=== PATIENT | male | born 1975 | race Two or more races ===

== ENCOUNTER → 2023-07-17 12:12 | Outpatient (REF) | payer BC, SELFPAY ==
[2023-07-17 13:21] LABS: % Basophils 0.7 % (0-2); % Eosinophils 1.6 % (0-6); % Immature Granulocytes 0.3 % (0-0.5); % Lymphocytes 32.9 % (20.5-51.1); % Monocytes 8.4 % (1.7-9.3); % Neutrophils 56.1 % (42.2-75.2); Absolute Basophils 0.1 10^3/uL (0-0.2); Absolute Eosinophils 0.2 10^3/uL (0-0.7); Absolute Lymphocytes 3.2 10^3/uL (1.2-3.4); Absolute Monocytes 0.8 10^3/uL (0.1-0.6); Absolute Neutrophils 5.4 10^3/uL (1.4-6.5); Hematocrit 42.2 % (39.0-52.0); Hemoglobin 14.6 g/dL (13.0-18.0); Mean Corp Hgb Conc. 34.6 g/dL (33.0-37.0); Mean Corpuscular Hgb 29.7 pg (27.0-31.0); Mean Corpuscular Volume 85.8 fL (80.0-94.0); Mean Platelet Volume 11.5 fL (7.4-10.4); Nucleated Red Blood Cells % 0 % (-); Platelet Count 235 10^3/uL (130-400); Red Blood Cell Count 4.92 10^6/uL (4.70-6.10); Red Cell Dist. Width 13.1 % (11.5-14.5); White Blood Cell Count 9.6 10^3/uL (4.8-10.8)
[2023-07-17 14:02] LABS: ALT (SGPT) 39 U/L (0-50); AST (SGOT) 28 U/L (17-59); Albumin 4.4 g/dl (3.5-5.0); Alkaline Phosphatase 65 U/L (38-126); Blood Urea Nitrogen 15 mg/dl (9-20); Calcium 9.4 mg/dl (8.4-10.2); Carbon Dioxide 29 mmol/L (22-30); Chloride 102 mmol/L (98-107); Glucose 89 mg/dl (70-99); HDL Cholesterol 37 mg/dl; LDL Cholesterol, Calculated 79 mg/dl; Sodium 137 mmol/L (135-145); Total Bilirubin 0.6 mg/dl (0.2-1.3); Total Cholesterol 149 mg/dl (50-199); Total Protein 7.3 g/dl (6.3-8.2); Triglyceride 165 mg/dl (10-149); Very Low Density Lipoprotein 33 mg/dl (0-30); eGFR > 60.00
[2023-07-17 14:16] LABS: TSH 1.04 uIU/ml (0.47-4.68)
[2023-07-17 14:30] LABS: PSA, Total - Diagnostic 0.73 ng/ml (0.0-4.0)
[2023-07-17 14:55] LABS: Glycohemoglobin (HgbA1c) 5.9 % (4.0-5.6)
== END ==
LOC: REG 12:12
PROVIDERS: ATTENDING PHYSICIAN Family Medicine
DX: Z00.00 Encounter for general adult medical examination without abnormal findings (principal)
CPT/HCPCS: 36415; 80053; 80061; 83036; 84153; 84443; 85025

== ENCOUNTER → 2023-08-03 06:31 | Day surgery (SDC) | payer BC, SELFPAY | LOC: GI 06:31 | PROVIDERS: ATTENDING PHYSICIAN Specialist | DX: Z12.11 Encounter for screening for malignant neoplasm of colon (principal); K57.30 Diverticulosis of large intestine without perforation or abscess without bleeding; D12.2 Benign neoplasm of ascending colon; D12.3 Benign neoplasm of transverse colon; K63.5 Polyp of colon; R07.89 Other chest pain | CPT/HCPCS: 45385; 45380; 43239; 88305 ==

== ENCOUNTER → 2023-11-02 20:00 | Outpatient (REF) | payer BC, SELFPAY | LOC: MRI 20:00 | PROVIDERS: ATTENDING PHYSICIAN Orthopaedic Surgery; FAMILY PHYSICIAN Family Medicine | DX: M25.511 Pain in right shoulder (principal) | CPT/HCPCS: 73221 ==

== ENCOUNTER → 2024-05-27 19:00 | Outpatient (REF) | payer BC, SELFPAY | LOC: CLAB 19:00 | PROVIDERS: ATTENDING PHYSICIAN Dermatology | DX: L30.8 Other specified dermatitis (principal) | CPT/HCPCS: 87070; 87205 ==

== ENCOUNTER → 2024-08-03 07:26 | Outpatient (REF) | payer BC, SELFPAY ==
[2024-08-03 08:41] LABS: % Basophils 0.8 % (0-2); % Eosinophils 3.5 % (0-6); % Immature Granulocytes 0.4 % (0-0.5); % Lymphocytes 32.9 % (20.5-51.1); % Monocytes 9.5 % (1.7-9.3); % Neutrophils 52.9 % (42.2-75.2); Absolute Basophils 0.1 10^3/uL (0-0.2); Absolute Eosinophils 0.3 10^3/uL (0-0.7); Absolute Lymphocytes 2.7 10^3/uL (1.2-3.4); Absolute Monocytes 0.8 10^3/uL (0.1-0.6); Absolute Neutrophils 4.4 10^3/uL (1.4-6.5); Hematocrit 44.6 % (39.0-52.0); Hemoglobin 14.7 g/dL (13.0-18.0); Mean Corpuscular Hgb 28.4 pg (27.0-31.0); Mean Corpuscular Volume 86.1 fL (80.0-94.0); Mean Platelet Volume 10.9 fL (7.4-10.4); Nucleated Red Blood Cells % 0 % (-); Platelet Count 221 10^3/uL (130-400); Red Blood Cell Count 5.18 10^6/uL (4.70-6.10); Red Cell Dist. Width 13.1 % (11.5-14.5); White Blood Cell Count 8.3 10^3/uL (4.8-10.8)
[2024-08-03 09:06] LABS: ALT (SGPT) 34 U/L (0-50); AST (SGOT) 24 U/L (17-59); Albumin 4.7 g/dl (3.5-5.0); Alkaline Phosphatase 62 U/L (38-126); Blood Urea Nitrogen 17 mg/dl (9-20); Calcium 9.9 mg/dl (8.4-10.2); Carbon Dioxide 30 mmol/L (22-30); Chloride 97 mmol/L (98-107); Glucose 116 mg/dl (70-99); HDL Cholesterol 38 mg/dl; LDL Cholesterol, Calculated 91 mg/dl; Potassium 4.6 mmol/L (3.5-5.1); Sodium 138 mmol/L (135-145); Total Bilirubin 0.9 mg/dl (0.2-1.3); Total Cholesterol 154 mg/dl (50-199); Total Protein 7.4 g/dl (6.3-8.2); Triglyceride 127 mg/dl (10-149); Very Low Density Lipoprotein 25 mg/dl (0-30); eGFR > 60.00
[2024-08-03 09:31] LABS: PSA, Total - Screen 0.81 ng/ml (0.0-4.0); TSH 1.18 uIU/ml (0.47-4.68)
[2024-08-03 09:56] LABS: Glycohemoglobin (HgbA1c) 5.5 % (4.0-5.6)
== END ==
LOC: REG 07:26
PROVIDERS: ATTENDING PHYSICIAN Family Medicine
DX: Z00.00 Encounter for general adult medical examination without abnormal findings (principal); E78.2 Mixed hyperlipidemia; I10 Essential (primary) hypertension; Z12.5 Encounter for screening for malignant neoplasm of prostate
CPT/HCPCS: 36415; 80053; 80061; 83036; 84443; 85025; G0103

== ENCOUNTER → 2024-12-14 08:01 | Outpatient (REF) | payer BC, SELFPAY | LOC: RCS 08:01 | PROVIDERS: ATTENDING PHYSICIAN Internal Medicine; FAMILY PHYSICIAN Family Medicine | DX: I10 Essential (primary) hypertension (principal) | CPT/HCPCS: 93306 ==

== ENCOUNTER → 2025-01-04 08:31 | Outpatient (REF) | payer BC, SELFPAY ==
[2025-01-04 09:29] LABS: Hematocrit 42.0 % (39.0-52.0); Hemoglobin 14.1 g/dL (13.0-18.0); Mean Corp Hgb Conc. 33.6 g/dL (33.0-37.0); Mean Corpuscular Volume 84.3 fL (80.0-94.0); Nucleated Red Blood Cells % 0 % (-); Platelet Count 207 10^3/uL (130-400); Red Cell Dist. Width 13.0 % (11.5-14.5)
[2025-01-04 09:56] LABS: ALT (SGPT) 28 U/L (0-50); AST (SGOT) 22 U/L (17-59); Albumin 4.5 g/dl (3.5-5.0); Alkaline Phosphatase 55 U/L (38-126); Blood Urea Nitrogen 15 mg/dl (9-20); Calcium 9.3 mg/dl (8.4-10.2); Carbon Dioxide 29 mmol/L (22-30); Chloride 106 mmol/L (98-107); Glucose 106 mg/dl (70-99); Potassium 4.1 mmol/L (3.5-5.1); Sodium 141 mmol/L (135-145); Total Protein 7.1 g/dl (6.3-8.2); eGFR > 60.00
== END ==
LOC: REG 08:31
PROVIDERS: ATTENDING PHYSICIAN Internal Medicine; FAMILY PHYSICIAN Family Medicine
DX: I35.0 Nonrheumatic aortic (valve) stenosis (principal); I10 Essential (primary) hypertension
CPT/HCPCS: 36415; 80053; 85025

== ENCOUNTER 2025-01-16 07:35 | Day surgery (SDC) | payer BC, SELFPAY ==
[2025-01-16] VITALS (17 sets, daily range): BP systolic 109–140; BP diastolic 61–84; BMI 33.3
[2025-01-16] MEDS: LOW STRENGTH ASPIRIN 81 MG PO (08:21)
[2025-01-16] MEDS: NSS 298 ML IV (08:23)
--- NOTE | 2025-01-16 09:47 | ITS.CL.CATH ---
Addendum entered and electronically signed by Eldon Hines DO 01/16/25 10:14:
D/C HCTZ.
Start furosemide 40 mg daily.
BMP in one week.
Original Note:
Director Of Alumni Relations - Catheterization
Cardiac Catheterization
Procedure Report:
CARDIAC CATHETERIZATION REPORT
Date of Procedure: 01/16/2025
Referring: Carroll Chowdhury M.D.
Indication: Severe aortic valve stenosis, preop AVR.
PROCEDURE:
1. Right heart catheterization.
2. Coronary angiography.
A total of 12 minutes of procedural/moderate sedation was utilized. An independent medical staff services manager was present to assist with and help manage the patient's level of consciousness and physiologic status.
ACCESS:
1. 6 [place] right radial artery using modified Seldinger technique.
2. 5 [place] right antecubital vein using a previously placed IV.
CATHETERS:
1. 5 [place] balloon with.
2. 5 [place] JL 3.5.
3. [5] [place] JR4.
HEMODYNAMIC DATA
Weight (kg): 98.9
AO (s/d/x, mmHg): 136/83/105
LV (s/x, mmHg): Not obtained.
PCWP (a/v/x, mmHg): 36/38/25
PA (s/d/x, mmHg): 40/24/29
RV (s/x, mmHg): 49/16
RA (a/v/x, mmHg): 21/20/16
SVC SvO2 (%): 71.7
IVC SvO2 (%): Not obtained.
RA SvO2 (%): Not obtained.
RV SvO2 (%): Not obtained.
PA SvO2 (%): 70.2
SaO2 (%): 96.0
Hbg (g/dL): 13.9
EFRAIN
CO (L/min): 5.44
CI (L/min/m2): 2.56
Thermodilution
CO (L/min): Not performed.
CI (L/min/m2): Not performed.
TPG (mmHg): 5
PVR (Benjamin Units): 0.92
SVR (dynes*seconds*cm^-5): 1308
AVO2 Diff (Volume %): 4.88
AV gradient (x, mmHg): Not obtained.
AV area (cm2): Not obtained.
MV gradient (x, mmHg): Not obtained.
MV area (cm2): Not obtained.
LEFT VENTRICULOGRAPHY: Not performed.
AORTOGRAPHY: Not performed.
CORONARY ANGIOGRAPHY
Dominance: Right.
Left Main: Normal size, bifurcating vessel. There is no coronary artery disease.
LAD: Normal size vessel giving rise to 3 diagonals. The 1st and 2nd diagonal are small to medium size vessels. The third diagonal is a larger vessel supplying a significant portion of the mid to distal anterolateral wall. There is an 80%
lesion in the ostium of D3.
Ramus: Congenitally absent.
Circumflex: Normal size, nondominant vessel giving rise to 1 large obtuse marginal. This obtuse marginal gives several smaller branches. There is no occlusive coronary artery disease.
RCA: Normal size, dominant vessel. The vessel is chronically totally occluded at its proximal margin. The distal RCA/RPDA is supplied by collaterals from the left system.
INTERVENTIONS
None.
Closure Device: Vascular band for the right radial artery, manual pressure for the right antecubital vein.
Radiation dose (mGy): 567.33
DAP (cm2.Gy): 40.8721
Fluoroscopy time (minutes): 6.4
CONCLUSIONS:
1. Right dominant circulation with an 80% lesion in a substantial D3 and chronic total occlusion of the proximal RCA supplied by collaterals from the left circulation.
2. Severely elevated filling pressures (PCWP = 25 mmHg at 98.9 kg).
3. Mild, postcapillary pulmonary hypertension (mean PA = 29 mmHg, PCWP = 25 mmHg, cardiac output = 5.44 L/min, PVR = 0.92 Benjamin units).
4. Severe, bicuspid aortic valve stenosis by echocardiography.
RECOMMENDATIONS:
1. Expectant management after cardiac catheterization via right radial/antecubital approach.
2. Limited weight bearing on the right for one week.
3. Consultation with CT surgery regarding aortic valve replacement with appropriate revascularization.
4. OMT/GDMT as hemodynamics will tolerate.
5. Aggressive secondary prevention with high-dose, high potency statin. Goal LDL <55.
6. Continue surgical planning.
Copy to: Orestes Leyva M.D., Carroll Chowdhury M.D., KRYSTYNA Stark, Makeda Carney M.D.
Eldon Hines DO, FACC, FACP
[2025-01-16] MEDS: NSS 1000 IV (10:07)
== END 2025-01-16 14:08 | disposition home or self-care (01) ==
LOC: CATH 07:35
PROVIDERS: ATTENDING PHYSICIAN Internal Medicine Cardiovascular Disease; FAMILY PHYSICIAN Family Medicine; OTHER PHYSICIAN Internal Medicine
DX: I35.0 Nonrheumatic aortic (valve) stenosis (principal); Z01.810 Encounter for preprocedural cardiovascular examination; I25.10 Atherosclerotic heart disease of native coronary artery without angina pectoris; I25.82 Chronic total occlusion of coronary artery; I27.20 Pulmonary hypertension, unspecified; E78.2 Mixed hyperlipidemia; I10 Essential (primary) hypertension; Z79.82 Long term (current) use of aspirin; Z79.899 Other long term (current) drug therapy
CPT/HCPCS: 99152; 93456; C1894; Q9967

== ENCOUNTER → 2025-01-23 16:35 | Outpatient (REF) | payer BC, SELFPAY ==
[2025-01-23 17:31] LABS: Blood Urea Nitrogen 16 mg/dl (9-20); Calcium 9.8 mg/dl (8.4-10.2); Carbon Dioxide 30 mmol/L (22-30); Chloride 100 mmol/L (98-107); Glucose 90 mg/dl (70-99); Magnesium 2.1 mg/dl (1.6-2.3); Potassium 4.1 mmol/L (3.5-5.1); Sodium 138 mmol/L (135-145); eGFR > 60.00
== END ==
LOC: REG 16:35
PROVIDERS: ATTENDING PHYSICIAN Nurse Practitioner Adult Health; FAMILY PHYSICIAN Family Medicine; OTHER PHYSICIAN Internal Medicine
DX: I35.0 Nonrheumatic aortic (valve) stenosis (principal)
CPT/HCPCS: 36415; 80048; 83735

== ENCOUNTER 2025-03-21 04:59 | Inpatient (IN) | payer BC, SELFPAY ==
[2025-03-05 09:03] VITALS: BMI 34.5
[2025-03-05 09:04] LABS: Hematocrit 44.4 % (39.0-52.0); Hemoglobin 15.2 g/dL (13.0-18.0); Mean Corp Hgb Conc. 34.2 g/dL (33.0-37.0); Mean Corpuscular Volume 84.4 fL (80.0-94.0); Nucleated Red Blood Cells % 0 % (-); Platelet Count 206 10^3/uL (130-400); Red Cell Dist. Width 13.3 % (11.5-14.5)
[2025-03-05 09:16] LABS: INR 0.92; PT 12.9 Sec (11.4-14.6)
[2025-03-05 09:33] LABS: ALT (SGPT) 37 U/L (0-50); AST (SGOT) 24 U/L (17-59); Albumin 4.7 g/dl (3.5-5.0); Alkaline Phosphatase 57 U/L (38-126); Blood Urea Nitrogen 16 mg/dl (9-20); Calcium 9.4 mg/dl (8.4-10.2); Carbon Dioxide 29 mmol/L (22-30); Chloride 104 mmol/L (98-107); Estimated Creatinine Clearance 122 ml/min; Glucose 108 mg/dl (70-99); Potassium 4.2 mmol/L (3.5-5.1); Sodium 141 mmol/L (135-145); Total Protein 7.5 g/dl (6.3-8.2); eGFR > 60.00
[2025-03-05 09:40] LABS: Urine Character Clear (Clear)
--- NOTE | 2025-03-05 10:05 | CM ---
Met with Mr. Arias in [facility]. He states prior to admission he resides with his spouse and fourteen year old daughter in a spilt level home with three steps to enter. He states he has seven steps to get to the bedroom/full bathroom. He states
he has three steps to get to the lower level. He states prior admission he was independent with ambulation and adls. He states he does not have any DME in the home. He states he has a prescription plan. He states his spouse will take FMLA and be
available to assist in his care if needed. The discharge plan is to return home with his spouse and daughter and a home visit by the Transitional Care Nurse when medically stable.
We reviewed pre-op and post-op routines. We reviewed the shower instructions. He has the soap, written instructions and the Cardiothoracic Surgery Educational Booklet. We also reviewed restrictions including sternal precautions and driving
restrictions. We discussed a home visit by the Transitional Care Nurse. He is agreeable to a home visit. The plan is for CABG and LAMONT on Friday, March 21, 2025.
[2025-03-05 14:24] LABS: Glycohemoglobin (HgbA1c) 5.6 % (4.0-5.6)
[2025-03-21] VITALS (9 sets, daily range): BP systolic 81–147; BP diastolic 49–85; BMI 35.1
[2025-03-21] MEDS: BACTROBAN 2% OINTMENT 1 APPLIC NASAL ×2 (06:04→19:44)
[2025-03-21] MEDS: LOPRESSOR 25 MG PO (06:06)
[2025-03-21] MEDS: MAGNESIUM OXIDE 400 MG PO (06:07)
[2025-03-21] MEDS: PROTONIX 40 MG PO (06:07)
--- NOTE | 2025-03-21 06:10 | PTCARENOTE ---
Pt admitted to CVICU at 0507. VS done. Pt weighed. Pt clipped and prepped for CVOR. CHG bath given. RC Cordova at bedside to see pt. Pre-op medications given. at bedside. Awaiting call to escort pt to CVOR. No c/o pain.
--- NOTE | 2025-03-21 06:28 | W.CVOR.SURPR ---
CVOR Surgeon Immed Pre Op
-
CARDIAC SURGERY PREOPERATIVE NOTE:
I have seen and examined Mr. Otto Arias. There have been no major changes to his condition since his initial outpatient evaluation. Despite careful consideration and conversations with myself and his copier technician, Mr. Arias still
requests a tissue AVR. Operative plan will involve tissue AVR, CABG x 1-2, and exclusion of his left atrial appendage.
Thank you.
Orestes Leyva MD
[phone]
[2025-03-21 07:59] LABS: Urine Character Clear (Clear)
[2025-03-21 08:11] LABS: ACT+ - POC 115 Seconds (82-134)
[2025-03-21 08:35] LABS: Urine Squamous Cell 0-2 /LPF (Few); Urine Urothelial Cell 0-2 /LPF (FEW)
[2025-03-21 09:19] LABS: ACT+ - POC 796 Seconds (82-134)
[2025-03-21 10:00] LABS: ACT+ - POC 573 Seconds (82-134)
[2025-03-21 10:26] LABS: ACT+ - POC 497 Seconds (82-134)
[2025-03-21 10:55] LABS: ACT+ - POC 466 Seconds (82-134)
[2025-03-21 11:26] LABS: ACT+ - POC 611 Seconds (82-134)
[2025-03-21 11:58] LABS: ACT+ - POC 551 Seconds (82-134)
[2025-03-21 12:28] LABS: ACT+ - POC 489 Seconds (82-134)
[2025-03-21 12:47] LABS: ACT+ - POC 552 Seconds (82-134)
[2025-03-21 13:06] LABS: ACT+ - POC 473 Seconds (82-134)
[2025-03-21 13:20] LABS: ACT+ - POC 514 Seconds (82-134)
[2025-03-21 13:34] LABS: ACT+ - POC 137 Seconds (82-134)
[2025-03-21 14:47] LABS: B.E. - POC 1.8 mmol/L; Glucose - POC 129 mg/dl (70-99); HCO3 - POC 26 mmol/L (21-28); Hematocrit - POC 22 % PCV (42-52); Hemodilution- POC Yes; Hemoglobin Calculated - POC 7.3; Ionized Calcium - POC 1.20 mmol/L (1.15-1.33); Lactate - POC 2.28 mmol/L (0.36-0.75); O2 Saturation %Calculated-POC 100.0 % (94-98); PCO2 - POC 41 mmHg (35-48); PO2 - POC 490 mmHg (83-108); POC Comment POST; Potassium - POC 3.6 mmol/L (3.5-5.1); Sodium - POC 142 mmol/L (136-145); Specimen Type - POC Arterial; pH - POC 7.42 (7.35-7.45)
--- NOTE | 2025-03-21 14:50 | CON.INTV ---
Consultation
Consultation Request
Date/Time Consultation Requested: 03/21/2025 - 135
Date/Time Consultation Performed: 03/21/2025 - 142
Requesting Provider: KRYSTYNA Coffey
Performing Provider: Dr. Lee
Reason for Consultation: s/p CABG x2 + AVR
Medical History
-
Chief Complaint: Elective CABG + AVR
History of Present Illness:
50-year-old morbidly obese male former tobacco smoker with a past medical history of CAD, aortic valve stenosis, hypertension, mixed hyperlipidemia, history of sleep apnea, lung nodule, prediabetes, seasonal allergic rhinitis, diverticulosis,
history of herpes zoster and GERD who presents for elective AVR + CABG. Patient known to the cardiothoracic surgery service with the last visit on 02/11/[address] Leyva. Echo in November 2024 showed probable bicuspid aortic valve with likely
severe aortic stenosis with peak/mean gradients of 96/54 mmHg, DARRYN 1 cm� and DVI 0.31. Also mild�moderate AI. The LVEF was 60 to 65% with normal biventricular size and no regional WMA. Subsequent left and right heart catheterization on 01/16/2025
showed severely elevated filling pressures with PCWP 25 mmHg, with a mPAP mildly elevated at 29 mmHg, preserved PVR at 0.92, TPG WNL at 5, and right dominant circulation with an 80% lesion is a substantial D3 and chronic total occlusion of the
proximal RCA supplied from collaterals from left circulation. CT surgery discussed surgical intervention which he agreed to. Today he underwent CABG x 2 with excision of tricuspid stenotic AV with annular debridement, pericardial patch annular
enlargement, AVR with #25 Inspiris Resilia, pericardial patch aortic augmentation/closure of aortotomy, and repair of posterior aortic annular bleeding which required reestablishment of cardiopulmonary bypass. Patient was transferred to the CVICU
postoperatively, and Design Analyst service consulted for additional management/recommendations.
When I saw the patient, he was intubated on SIMV at 14/600/40%/5, with PIP 26 cmH2O, VTe 570 cc and breathing at 14 breaths/min. Heart rate 78, BP via A-line 96/59, PAP 29/15, CO/CI: 3.68/1.74, respectively, and SpO2 98%. Currently on dobutamine
at 3 mcg/kg/min and being sedated on Precedex at 1 mcg/kg/hr. Given the posterior aortic annular bleeding, patient will remain intubated tonight and his Precedex is being transition to propofol.
PMHx: Hypertension, hyperlipidemia, GERD, fatty liver disease, dysesthesia, aortic valve stenosis, aortic valve regurgitation, prediabetes, former tobacco smoker, lung nodule, sleep apnea, atherosclerosis of aorta, seasonal allergic rhinitis,
history of diverticulosis, right third finger ORIF, history of herpes zoster, CAD
PSHx: ORIF right middle finger, ORIF right ankle fracture, coronary cath (01/16/2025)
Past Medical History
Past Medical History: Other (Above as per HPI)
Past Surgical History: Other (Above as per HPI)
Social History
Tobacco: Former Smoker (Smoked for 15 years)
Alcohol: Occasional (Socially on weekends)
Drug: None
Personal:
Living: With Family
Employment: Employed (IT)
Family History
Family History: CAD (Mother + maternal grandfather), Diabetes (Mother, maternal grandfather) and Other (Maternal grandmother: CVA; Father: after surgery to remove gallstones (details unclear - occurred in [place]))
Allergies / Home Medications
Allergies
Allergy/AdvReac Type Severity Reaction Status Date / Time
No Known Allergies Allergy Verified 03/21/25 05:34
Home Medications
�Medication �Instructions �Recorded �Confirmed �Last Taken �Type
aspirin 81 mg tablet 81 mg PO DAILY Blood Clot 01/16/25 03/21/25 03/19/25 08:00 History
Prevention/Tx
lisinopril 10 mg tablet 10 mg PO HS Blood Pressure 01/16/25 03/21/25 03/18/25 21:00 History
omeprazole 40 mg capsule,delayed 40 mg PO DAILY Gastrointestinal 01/16/25 03/21/25 03/17/25 08:00 History
release Issue
rosuvastatin 40 mg tablet 40 mg PO HS High Cholesterol 01/16/25 03/21/25 03/18/25 21:00 History
furosemide 40 mg tablet (Lasix) 40 mg PO DAILY Fluid 03/21/25 03/21/25 03/20/25 08:00 History
Retention/Swelling
Review of Systems
-
Unable to Obtain full review of systems at this time due to: Patient Intubation
Vitals / Labs / Diagnostic Testing
Vital Signs
Temp Pulse Resp BP Pulse Ox
97.9 F 74 16 147/85 100
03/21/25 05:11 03/21/25 06:06 03/21/25 05:11 03/21/25 06:06 03/21/25 05:11
Diagnostic Testing:
Physical Exam
-
HEENT: Normocephalic, Anicteric, Other (ETT in place) and Other (thick neck)
Cardiovascular: S1/S2 and Peripheral Edema (negative)
Respiratory: Wheeze (negative), Rales (negative), Rhonchi (negative), Non-Labored Respirations, Other (Mechanical breath sounds heard bilaterally) and Other (Mediastinal chest tubes x 2 & left pleural chest tube x 1)
GI: Soft, Distended (Abdominal obesity), Non Tender and Normal Bowel Sounds
Neurology: Tremors (negative) and Other (Sedated)
Skin: Warm, Dry and Other (Right foot/toes are cool to touch)
General: Respiratory Distress (negative), Comfortable, Fever (negative) and Chills (negative)
Assessment
-
Assessment: 50-year-old morbidly obese male former tobacco smoker with a past medical history of CAD, aortic valve stenosis, hypertension, mixed hyperlipidemia, history of sleep apnea, lung nodule, prediabetes, seasonal allergic rhinitis,
diverticulosis, history of herpes zoster and GERD who presents for elective AVR + CABG. Patient known to the cardiothoracic surgery service with the last visit on 02/11/[address] Leyva. Echo in November 2024 showed probable bicuspid aortic valve
with likely severe aortic stenosis with peak/mean gradients of 96/54 mmHg, DARRYN 1 cm� and DVI 0.31. Also mild�moderate AI. The LVEF was 60 to 65% with normal biventricular size and no regional WMA. Subsequent left and right heart catheterization
on 01/16/2025 showed severely elevated filling pressures with PCWP 25 mmHg, with a mPAP mildly elevated at 29 mmHg, preserved PVR at 0.92, TPG WNL at 5, and right dominant circulation with an 80% lesion is a substantial D3 and chronic total occlusion
of the proximal RCA supplied from collaterals from left circulation. CT surgery discussed surgical intervention which he agreed to. On 03/21/2025, the pt underwent CABG x 2 with excision of tricuspid stenotic AV with annular debridement,
pericardial patch annular enlargement, AVR with #25 Inspiris Resilia, pericardial patch aortic augmentation/closure of aortotomy, and repair of posterior aortic annular bleeding which required re-establishment of cardiopulmonary bypass. Patient was
transferred to the CVICU postoperatively, and Design Analyst service consulted for additional management/recommendations.
Chronic conditions BATTERY STACKER: Hypertension, hyperlipidemia, GERD, fatty liver disease, dysesthesia, aortic valve stenosis, aortic valve regurgitation, prediabetes, former tobacco smoker, lung nodule, sleep apnea, atherosclerosis of aorta, seasonal
allergic rhinitis, history of diverticulosis, right third finger ORIF, history of herpes zoster, CAD
Impression:
#Severe aortic stenosis + moderate aortic insufficiency s/p surgical aortic valve replacement with #25 Inspiris Resilia - POD#0
#CAD with FIELD CROP HARVEST CONTRACTOR of RCA and 80% stenosis of D3 s/p CABG x 2 (GSV to D3, GSV to RPDA) - POD#0
#s/p excision of tricuspid stenotic AV with annular debridement, pericardial patch annular enlargement, pericardial patch and aortic augmentation/closure of aortotomy, with posterior aortic aneurysm bleeding repair requiring reestablishment of CPB-
POD#0
#Acute anemia due to above
#Acute thrombocytopenia due to above
#Hyperglycemia (mild)
#Hypocalcemia
#History of COVID-19 (05/06/2020)
#Obesity (BMI: 35.1) with fatty liver disease
#GERD
#Hypertension/hyperlipidemia
#Former tobacco smoker (smoked 1 pack/week for 20 years, quit in 2009)
#Severe GINNA on CPAP
Plan:
Ventilator settings reviewed
FiO2 will be weaned to maintain SpO2 >90-94%
Minute ventilation will be adjusted
Arterial blood gases will be monitored
Spontaneous breathing trial will be attempted with hopeful extubation after anesthesia/sedation wear off
prn nebulized bronchodilators - not currently bronchospastic
Pulmonary artery catheter parameters will be followed
Pressors/antihypertensive/inotropes/diuretics will be provided as needed
Maintain MAP>65
Replete electrolytes with K>4, Mg>2
Monitor chest tube output (mediastinal chest tubes x 2 and left pleural chest tubes x 1)
Monitor hemoglobin
Monitor platelet count and coags
Transfuse blood products as needed to maintain Hb>7g/dL, plt>50k (given post-operative status)
CT surgery managing chest tubes
Monitor blood sugar to maintain euglycemia with goal BG 110-140
Insulin drip per protocol
Aspiration precautions
VAP prevention protocol
DVT prophylaxis
Early nutrition
Early mobilization
Critical care statement: A total of 37 minutes of critical care time was provided for this patient today. This includes management of ventilator, spontaneous breathing trial, arterial blood gases, pressors, of unstable vital signs, evaluation of the
patient at bedside, reviewing the patient's pertinent medical records including radiographs, microbiology, laboratory evaluations, and discussion with primary team and critical care nursing.
[2025-03-21] MEDS: TYLENOL PO ×2 (14:59→22:49)
[2025-03-21] MEDS: NOVOLOG FLEXPEN SC ×2 (14:59→16:21)
[2025-03-21 15:24] LABS: ACT+ - POC 954 Seconds (82-134)
[2025-03-21 15:30] LABS: ACT+ - POC 430 Seconds (82-134)
[2025-03-21 16:04] LABS: ACT+ - POC 93 Seconds (82-134)
[2025-03-21] MEDS: NEURONTIN PO ×2 (16:20→22:48)
[2025-03-21] MEDS: PACERONE PO ×2 (16:20→22:49)
--- NOTE | 2025-03-21 16:24 | W.IMMPOSTOP ---
Addendum entered and electronically signed by Orestes Leyva MD 03/21/25 17:58:
[id number]
Original Note:
Surgical Immed Post Op Note
-
CARDIAC SURGERY OPERATIVE NOTE:
Preoperative Dx:
ACCOUNTING ADMINISTRATIVE ASSISTANT of RCA and 80% proximal D3 CAD
Severe aortic stenosis
Moderate aortic insufficiency
Postoperative
Same
Normal biventricular function; LVEF 60%, no RWMA, mild MR, mean gradient 8mmHg/no AI/PVL
Procedures:
1) Median sternotomy
2) Endoscopic harvest/prep of RLE GSV
3) CABG x 2 (GSV to D3, GSV to RPDA)
4) Excision of tricuspid stenotic AV w/ annular debridement
5) Pericardial patch annular enlargement
6) AVR (#25 Inspiris Resilia)
7) Pericardial patch aortic augmentation/closure of aortotomy
8) Proximal GSV anastomoses x 2
9) Separation from CPB/decannulation
10) Attempted repair of posterior aortic annular bleeding - partially successful
11) Re-establishment of CPB
12) Additional repair of posterior aortic annular bleeding
13) Application of topical hemostatic agents
14) Chest closure
Surgeon:
Orestes Leyva M.D.
Co-surgeons:
Nikita Castro M.D. and Gena Slaughter M.D. - repair of posterior aortic annular bleeding
Assistants:
Christie Hamlin P.A.-C.; employee relations assistant through primary surgical procedure (AVR/CABG x 2)
Tara FarahC.; endoscopic harvest/prep of RLE GSV; [id number] sternotomy closure
Brielle Harp.A.-C.; employee relations assistant through secondary surgical procedure/annular repair; [id number] sternotomy closure
Perfusionists:
Lexis BrandtP. - XC 182min, CPB 221min + 26min (247min)
Findings:
GSV was healthy appearing conduit; ELD 3.5mm
RPDA was visible on the epicardial surface, RCA was quite calcified around the CRUX, anastomosis performed at junction of middle and distal third of RPDA; vessel w/ slightly thickened peter at this location w/o sig calcifications, ELD 2.00mm;
anastomosis performed over 1mm intracoronary shunt secondary to a significant amount of non-coronary collateral flow
D3 was visible on the epicardial surface, scant scattered calcifications, ELD 2.75mm
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
AV was trileaflet w/ extensive annular and leaflet calcifications throughout - despite preop annular measurements of 26.2 x 22.0; annulus would not accommodate a 25mm Inspiris Resilia valve.
Pericardial patch aortic root augmentation performed
25mm Inspiris Resilia Valve placed w/ 18 interrupted pledgetted prolene sutures
Aortic augmentation, aortotomy closure w/ pericardial patch
Well-seated AVR w/o AI/PVL, normal biventricular function
Transient pacing requirement - defib x 1 - sustained sinus rhythm
from CPB w/o incident - increased bleeding from posterior aortic annulus
Bleeding identified - repair w/o CPB attempted w/ only partial reduction in bleeding
CPB re-established and posterior bleeding site addressed w/ addition 4-0 pledgetted prolene sutures - topical hemostatic agents placed
from CPB w/o incident - good hemostasis
Sternotomy closure w/ 9 interrupted sternal wires - CT monitored intraoperatively
Transfusions:
5U PRBC, 2pk PLTs, Factor VIIa
Implants:
[employer] 25mm INSPIRIS RESILIA valve - SN: [id number]
XenoSure Biological Patch
Complications:
Significant late posterior annular bleeding requiring re-establishment of CPB for repair
Transient desaturation after chest closure 2' to ventilatory malfunction - rapidly addressed
Condition:
GTTS: precedex 0.5, levophed 1, dobutamine 3, insulin 2
Guarded to CVICU
KEEP MAPs 55-60; SBP < 110
CT connected at 4:28; 0/5 - first half hour
[2025-03-21 17:03] LABS: Glucose - Point of Care 177 mg/dl (70-99)
--- NOTE | 2025-03-21 17:06 | W.PN.UPDATE ---
Update Note
Progress Note Update
58-year-old male with electively admitted on 03/17/2025 for AVR and CABG due to bicuspid aortic valve with severe aortic stenosis and two-vessel coronary disease with preserved EF
U.O.:� 1000
Blood:� 5PRBC, 2 plts
Wires:� Bipolar V-wire
Drips: Levophed @ 2, Dobutamine @ 3, precedex @ 1
�
NEURO: sedated, pupils +2mm B/L
RESP: #8OT @24cm> 600/60%/14/5. Lungs clear B/L. 2 mediastinal (30cc on arrival) and L pleural (20cc on arrival) chest tubes to -20cm suction. Sanguineous drainage
CV: RRR +S1, S2, no S3, no�rub, no murmur. Dermabond to median sternotomy. RIJ w/Iuka locked @ 50cm. PA 32/17; CVP 8
ABD: round, soft, no BS
EXT: no edema, +2/4 DP pulses B/L, no femoral bruit, RLE GIBSON wrap intact; XX radial A-line intact
: Morales with clear yellow urine
�
A/P: POD #0 s/p AVR #25 inspiris, root enlargement with bovine pericardial patch, CABG X2 (SVG-Dx, SVG-PDA) with repair of root bleeding
PEPE: EF�60%, AV 15/8mmHg, mild MR/TR
- required Glidescope intubation>keep intubated tonight
- keep SBP 90-110mmHg
- will need instruction regarding antibiotic prophylaxis for dental and invasive procedures
# CAD
- will require ASA, Plavix, statin, beta holly
�
# acute surgical blood loss anemia-expected
- trend CBC
�
# prediabetes (A1C 5.6)
- insulin x 24h
-not on diabetic meds at baseline
- assess for SGLT2i
�
# Hyperlipidemia
- resume�Crestor 40mg daily
# Class II Obesity (BMI 35)
- calorie,/carb reduced diet
[2025-03-21 17:09] LABS: B.E. -0.2 mmol/L; HCO3 24.8 mmol/L (21-28); O2 Saturation % 99.0 % (94-98); PCO2 41 mmHg (35-48); PO2 97 mmHg (83-108); Potassium 4.4 mMOL/L (3.5-5.1); Sodium 139 mMOL/L (136-145)
[2025-03-21] MEDS: CARDENE 200 IV (17:16)
[2025-03-21] MEDS: ANCEF 10 IV ×2 (17:19→17:22)
[2025-03-21] MEDS: NovoSeven RT (RECOMBINANT) 2 MG IV (17:22)
[2025-03-21] MEDS: NSS 500 IV (17:22)
[2025-03-21] MEDS: NOVOSEVEN RT 1 MG IV (17:22)
[2025-03-21 17:25] LABS: INR 1.28; PT 16.2 Sec (11.4-14.6)
[2025-03-21 17:26] LABS: APTT 40.6 Sec (23.4-35.0)
[2025-03-21] MEDS: CALCIUM GLUCONATE 100 IV ×3 (17:41→23:02)
[2025-03-21 17:43] LABS: Blood Urea Nitrogen 13 mg/dl (9-20); Estimated Creatinine Clearance > 125 ml/min; Glucose 160 mg/dl (70-99); Hematocrit 29.6 % (39.0-52.0); Hemoglobin 9.9 g/dL (13.0-18.0); Magnesium 2.5 mg/dl (1.6-2.3); Platelet Count 92 10^3/uL (130-400)
[2025-03-21] MEDS: DIPRIVAN 100 IV ×2 (17:54→22:50)
[2025-03-21 17:59] LABS: Glucose - Point of Care 140 mg/dl (70-99)
--- NOTE | 2025-03-21 18:05 | PTCARENOTE ---
Patient received from CVOR s/p AVR/root replacement/CABG x 2/LAAE. NSR via cm, SaO2 @ 98% on ventilator, titrating FiO2 as able. RIJ Cordis/[place]-Benja catheter, L radial arterial lines present - leveled, flushed, and calibrated w/good waveforms
returned. Epicardial V-wire to pulse generator set to back up rate 30bpm. Mediastinal chest tubes x 2, Y-connected to one pleurevac, L pleural chest tube to separate collection chamber - both placed to -20cm suction w/no air leaks appreciated. Morales
catheter to gravity. R leg procedural sites, CT sites wnl. Midsternal dressing w/small amount drainage, NEHEMIAH notified. Labs drawn, EKG performed, pcxr obtained. ETT repositioned by RT per NEHEMIAH request, pcxr obtained post. See work list for full
assessment, interventions performed, and intravenous infusions and titrations.
[2025-03-21] MEDS: LR 250 ML IV (18:35)
[2025-03-21 19:07] LABS: Glucose - Point of Care 145 mg/dl (70-99)
[2025-03-21] MEDS: ASPIRIN 300 MG RECTAL (19:21)
[2025-03-21 19:35] LABS: Triglycerides 91 mg/dl (10-149)
--- NOTE | 2025-03-21 20:00 | PTCARENOTE ---
Assumed care of patient at 1900. Patient found resting in bed intubated at time of assessment. Patient is RASS -3, pupils are equal and reactive 3mm, patient sedated not following commands at this time. Lung sounds are loud and audible. Patient has
8.0 ETT sitting 22cm on the lip receiving SIMV ventilation see worklist item for details. There are CTx3: L pleural draining red sanguinous to one atrium and 2xmeds draining to another. No air leaks or crepitus. Heart sounds are audible, patient is
SR with PVCs on the monitor, there is +2 generalized anasarca present, patient has v wires with VVI settings 30/15/0.8. Patient has round obese abdomen with hypoactive BS in all four quadrants, fernandez catheter draining clear yellow urine. There is a
sternal incision with aquacell dressing with small amount of old drainage present under dressing, R groin puncture approx with surg adhesive KELVIN with ecchymosis around site, and RLE incision with GIBSON wrap CDI. Patient has R IJ cordis with swan@48cm,
L radial erna, R AC PIV, and L FA PIV. Patient has the following gtts: Cordis/VIP KVO, insulin gtt col 2, Levo@2, prop@25, and dobut@4. Vital signs as follows: T-98.6, P-79 BP-90/53 RR-14 saO2-99 CVP-10 PAP-94/56
[2025-03-21] MEDS: SENOKOT PO (20:06)
[2025-03-21 20:14] LABS: Glucose - Point of Care 152 mg/dl (70-99)
[2025-03-21] MEDS: ANCEF 5 IV (20:50)
[2025-03-21 21:02] LABS: Glucose - Point of Care 133 mg/dl (70-99)
[2025-03-21 21:15] LABS: B.E. -0.5 mmol/L; HCO3 24.2 mmol/L (21-28); O2 Saturation % 99.9 % (94-98); PCO2 39 mmHg (35-48); PO2 112 mmHg (83-108); Potassium 4.0 mMOL/L (3.5-5.1)
[2025-03-21 21:22] LABS: Hematocrit 30.2 % (39.0-52.0); Hemoglobin 10.4 g/dL (13.0-18.0); Platelet Count 135 10^3/uL (130-400)
--- NOTE | 2025-03-21 21:30 | PTCARENOTE ---
At ~2100 patient awoke spontaneously agitated attempting to sit up pulling at wires. Pending fentanyl gtt propofol increased to 30. Patient started on soft limb restraints as a protective intervention.
[2025-03-21 22:01] LABS: Glucose - Point of Care 175 mg/dl (70-99)
[2025-03-21] MEDS: SUBLIMAZE 100 MCG IV (22:09)
[2025-03-21] MEDS: SUBLIMAZE 100 IV (22:16)
[2025-03-21] MEDS: CRESTOR PO (22:48)
[2025-03-21 23:57] LABS: Glucose - Point of Care 138 mg/dl (70-99)
[2025-03-22] VITALS (27 sets, daily range): BP systolic 84–135; BP diastolic 53–68; BMI 37.8
--- NOTE | 2025-03-22 | PTCARENOTE ---
Patient reassessed. Blood pressures labile patient sensitive to Levo titrated between 1-3 to maintain goal pressures. Propofol increased to 30 mcg d/t patient agitation RASS 2. Fentanyl gtt started at 25mcg to aid with pain management. Patient
remains SR on the monitor with frequent PVCs occasional PVC triplets. Good UOP but CI<2 CT PA aware. Labs revealed hypocalcemia repleted with 4g CaGluconate. All other labs and vitals WDL.
--- NOTE | 2025-03-22 00:38 | W.PN.CT ---
Today's Communication / Plan
-
Plan:
-No major issues overnight. Hemodynamically and neurologically intact
-Pt kept intubated overnight. On Fentanyl and Propofol
-Current vent settings: A/C, 600, 14, 5, .40
-Current drips: Dobutamine @ 4, Levophed @ 1, Propofol @ 30 , Fentanyl @ 50, Insulin gtt
-Last CI 1.94, MVO2 49.2, U/O since OR 890 mL
-Monitor chest tube output: 2meds 150/225, Left Pleural 20/60
-Holding BB while on dobutamine and hypotensive
-Holding AM Amiodarone while on dobutamine and intubated
-Holding PO meds while intubated
-Wean off sedation
-Extubate
-Wean dobutamine as tolerated
-Will d/c swan and a-line once off dobutamine
-Maintain fernandez catheter for accurate I/O's while on dobutamine
-Maintain cordis
-Maintain temporary v-wire
-OOB into chair/Ambulate when able to extubate
Assessment / Plan
-
Assessment:
-S/P Median sternotomy/CABG x 2 (GSV to D3, GSV to RPDA)/Endoscopic harvest/prep of RLE GSV/AVR (#25 Inspiris Resilia)/Excision of tricuspid stenotic AV w/ annular debridement/Pericardial patch annular enlargement/Pericardial patch aortic
augmentation/closure of aortotomy/Proximal GSV anastomoses x 2/ Attempted repair of posterior aortic annular bleeding - partially successful/ Additional repair of posterior aortic annular bleeding/Application of topical hemostatic agents, by
Gordon, 03/21/25, pod#1
-Severe
-Moderate AI
-Mild MR
-Trace TR
-Severe 2v CAD involving LAD and RCA
-LVEF 60% per intraop PEPE
-Hyperlipidemia
-HTN
-GERD
-Hx prediabetes, resolved
-Class 2 obesity (BMI 35.2)
-GINNA
-Fatty liver
-Former Tobacco use x 15 years
-Seasonal allergy
-Shingles
-Dysesthesia
-S/p ORIF right 3rd finger
-S/P ORIF right ankle
-Acute intraop/postop blood loss/Anemia (transfused 5u PRBC intraop)
-Acute intraop/postop thrombocytopenia (transfused 2 {5pks} plts intraop)
-Acute intraop/postop coagulopathy (received 3mg Factor VII)
-Acute postop VDRF
-Acute postop atelectasis
-Acute postop hypovolemia with subsequent hypervolemia
Discussed patient care with: Cardiology, Nursing, Respiratory Therapy, Pharmacy and Care Team
Subjective
-
Date of Service: March 22, 2025
Pt intubated and sedated
Objective Data
-
PT 16.2 Sec (11.4-14.6) H 03/21/25 16:56
INR 1.28 03/21/25 16:56
APTT 40.6 Sec (23.4-35.0) H 03/21/25 16:56
Vital Signs
Vital Signs
Temp Pulse Resp BP Pulse Ox
99.7 F 86 14 94/68 96
03/22/25 00:00 03/21/25 22:45 03/22/25 00:00 03/21/25 22:00 03/22/25 00:00
CT Intake/Output/Weight
03/21/25 03/21/25 03/22/25
06:59 18:59 06:59
Intake Total 220.9 / 551.9 331.0 / 551.9
Output Total 415 / 888 473 / 888
Balance -194.1 / -336.1 -142.0 / -336.1
SaO2: 99 (A/C, 600, 14, 5, .40)
Physical Exam
-
General: Other (sedated and intubated)
Cardiovascular: Regular rate & rhythm, No Murmurs, No Rub and No Gallop
Respiratory: Decreased Breath Sounds (at bases, otherwise clear)
Sternum: Stable
Incision: Clean, Dry, Intact and Dressing Intact
Extremities: Other (+trace edema)
Data Reviewed
-
Lab Results: Results Reviewed
Medications: Active Meds Reviewed
Chest X-Ray: Report Reviewed and Image Reviewed
ECG: Report Reviewed and Image Reviewed
[2025-03-22 01:57] LABS: Glucose - Point of Care 147 mg/dl (70-99)
[2025-03-22] MEDS: SUBLIMAZE 25 MCG IV (02:15)
--- NOTE | 2025-03-22 02:27 | PTCARENOTE ---
While provided oral care to patient, they became agitated attempting to sit up fighting ventilator blood pressure rising. CT PA notified. Orders received for fentanyl bolus. Administered and fentanyl gtt titrated up per protocol to 50 mcg. Patient
now resting comfortably synchronous with ventilator. Propofol maintained at 30 mcg.
[2025-03-22 02:56] LABS: Glucose - Point of Care 112 mg/dl (70-99)
[2025-03-22 03:36] LABS: Hematocrit 29.0 % (39.0-52.0); Hemoglobin 10.0 g/dL (13.0-18.0); Mean Corp Hgb Conc. 34.5 g/dL (33.0-37.0); Mean Corpuscular Volume 81.9 fL (80.0-94.0); Platelet Count 142 10^3/uL (130-400); Red Cell Dist. Width 15.5 % (11.5-14.5)
[2025-03-22 03:39] LABS: B.E. -0.5 mmol/L; HCO3 24.2 mmol/L (21-28); O2 Saturation % 97.6 % (94-98); PCO2 39 mmHg (35-48); PO2 76 mmHg (83-108)
[2025-03-22] MEDS: CALCIUM GLUCONATE 100 IV (03:52)
[2025-03-22 03:57] LABS: Blood Urea Nitrogen 16 mg/dl (9-20); Calcium 7.8 mg/dl (8.4-10.2); Carbon Dioxide 26 mmol/L (22-30); Chloride 113 mmol/L (98-107); Estimated Creatinine Clearance 106 ml/min; Glucose 141 mg/dl (70-99); Magnesium 2.1 mg/dl (1.6-2.3); Potassium 4.3 mmol/L (3.5-5.1); Sodium 140 mmol/L (135-145); eGFR > 60.00
[2025-03-22 04:09] LABS: Glucose - Point of Care 160 mg/dl (70-99)
[2025-03-22] MEDS: DIPRIVAN 100 IV ×2 (04:23→09:43)
[2025-03-22] MEDS: ANCEF 5 IV ×2 (04:54→12:10)
[2025-03-22 05:03] LABS: Glucose - Point of Care 116 mg/dl (70-99)
--- NOTE | 2025-03-22 05:04 | PTCARENOTE ---
Addendum entered by Rio Rodney RN 03/22/25 05:42:
Cold compress applied for 99.9 temperature
Original Note:
Patient reassessed. Additional 2g CaGluconate repleted this AM. Hygiene care provided. AM EKG obtained. Patient remains somewhat labile Levo 1-2. Adequate light sedation with prop and fentanyl. Patient able to nod in the affirmative when asked 'can
you hear me' purposeful movement of extremities noted. SR on the monitor with PVCs. Call menon within reach.
[2025-03-22] MEDS: TYLENOL PO ×2 (05:09→14:13)
[2025-03-22] MEDS: NOVOLIN R INSULIN INFUSION 100 IV ×2 (05:43→22:55)
[2025-03-22 06:03] LABS: Glucose - Point of Care 131 mg/dl (70-99)
--- NOTE | 2025-03-22 08:00 | PTCARENOTE ---
pt received from previous RN, sedated on Propofol and Fentanyl gtts. CPOT 0, RASS -2. pt able to nod head appropriately, BOLES, opens eyes to voice. SR on the monitor, HR 80s. V wire in place, VVI 30/15. SBP<110, Levophed gtt running as ordered. PAP
20s/10s, CVP ~6, CI>2. Dobutamine gtt running as ordered. palpable radial pulses, Doppler pedal pulses. +1 generalized anasarca. pt mechanically ventilated, ETT #8.0, 22cm@lip in the center. AC 14, TV 600, PEEP5, FIO2 40%. POX 94%. lungs clear
anteriorly, oral hygiene performed. CTx3, no air leak or crepitus noted. pt abdomen round, s/n. hypoactive BS. Morales in place, clear yellow urine. sternal Aquacel intact, old drainage. chest tube dressing c/d/i. R groin puncture KELVIN, ecchymotic. RLE
GIBSON bandage in place. RIJ cordis/swan maintained. L radial Patrizia flushed, zeroed, and calibrated. PIV x2. insulin gtt running as ordered. see worklist for VS, I&O, and assessment.
[2025-03-22 08:01] LABS: Glucose - Point of Care 138 mg/dl (70-99)
[2025-03-22] MEDS: NOVOLOG FLEXPEN SC ×2 (08:20→10:44)
--- NOTE | 2025-03-22 08:22 | W.PN.INTV ---
Today's Communication / Plan
Recommendations
Plan to extubate this morning after SBT
Continue dobutamine drip and trend MVO2 with goal >60�65; goal CI >2
Continue insulin drip with goal BG 110�140
Pain control
Once extubated, encourage incentive spirometer
Continue DAPT with aspirin + Plavix
High intensity statin
Pharmaceutical Plant Operator service will continue to follow along while patient remains in the CVICU
Assessment
-
Assessment: 50-year-old morbidly obese male former tobacco smoker with a past medical history of CAD, aortic valve stenosis, hypertension, mixed hyperlipidemia, history of sleep apnea, lung nodule, prediabetes, seasonal allergic rhinitis,
diverticulosis, history of herpes zoster and GERD who presents for elective AVR + CABG. Patient known to the cardiothoracic surgery service with the last visit on 02/11/[address] Leyva. Echo in November 2024 showed probable bicuspid aortic valve
with likely severe aortic stenosis with peak/mean gradients of 96/54 mmHg, DARRYN 1 cm� and DVI 0.31. Also mild�moderate AI. The LVEF was 60 to 65% with normal biventricular size and no regional WMA. Subsequent left and right heart catheterization
on 01/16/2025 showed severely elevated filling pressures with PCWP 25 mmHg, with a mPAP mildly elevated at 29 mmHg, preserved PVR at 0.92, TPG WNL at 5, and right dominant circulation with an 80% lesion is a substantial D3 and chronic total occlusion
of the proximal RCA supplied from collaterals from left circulation. CT surgery discussed surgical intervention which he agreed to. On 03/21/2025, the pt underwent CABG x 2 with excision of tricuspid stenotic AV with annular debridement,
pericardial patch annular enlargement, AVR with #25 Inspiris Resilia, pericardial patch aortic augmentation/closure of aortotomy, and repair of posterior aortic annular bleeding which required re-establishment of cardiopulmonary bypass. Patient was
transferred to the CVICU postoperatively, and Pharmaceutical Plant Operator service consulted for additional management/recommendations.
Chronic conditions AREA LOSS PREVENTION MANAGER: Hypertension, hyperlipidemia, GERD, fatty liver disease, dysesthesia, aortic valve stenosis, aortic valve regurgitation, prediabetes, former tobacco smoker, lung nodule, sleep apnea, atherosclerosis of aorta, seasonal
allergic rhinitis, history of diverticulosis, right third finger ORIF, history of herpes zoster, CAD
Impression:
#Severe aortic stenosis + moderate aortic insufficiency s/p surgical aortic valve replacement with #25 Inspiris Resilia - POD#1
#CAD with SCREEN MAKER of RCA and 80% stenosis of D3 s/p CABG x 2 (GSV to D3, GSV to RPDA) - POD#1
#s/p excision of tricuspid stenotic AV with annular debridement, pericardial patch annular enlargement, pericardial patch and aortic augmentation/closure of aortotomy, with posterior aortic aneurysm bleeding repair requiring reestablishment of CPB-
POD#1
#Acute anemia due to above
#Acute thrombocytopenia due to above
#Hyperglycemia (mild)
#Hypocalcemia
#History of COVID-19 (05/06/2020)
#Obesity (BMI: 35.1) with fatty liver disease
#GERD
#Hypertension/hyperlipidemia
#Former tobacco smoker (smoked 1 pack/week for 20 years, quit in 2009)
#Severe GINNA on CPAP
Plan:
Ventilator settings reviewed - plan to be extubated this morning
FiO2 will be weaned to maintain SpO2 >90-94%
Minute ventilation will be adjusted
Arterial blood gases will be monitored
Spontaneous breathing trial will be attempted with hopeful extubation after anesthesia/sedation wear off
prn nebulized bronchodilators - not currently bronchospastic
Pulmonary artery catheter parameters will be followed
Pressors/antihypertensive/inotropes/diuretics will be provided as needed
Maintain MAP>65
Replete electrolytes with K>4, Mg>2
Monitor chest tube output (mediastinal chest tubes x 2 and left pleural chest tubes x 1)
Monitor hemoglobin
Monitor platelet count and coags
Transfuse blood products as needed to maintain Hb>7g/dL, plt>50k (given post-operative status)
CT surgery managing chest tubes
Monitor blood sugar to maintain euglycemia with goal BG 110-140
Insulin drip per protocol
Aspiration precautions
VAP prevention protocol
DVT prophylaxis
Early nutrition
Early mobilization
Critical care statement: A total of 41 minutes of critical care time was provided for this patient today. This includes management of ventilator, spontaneous breathing trial, arterial blood gases, pressors, of unstable vital signs, evaluation of the
patient at bedside, reviewing the patient's pertinent medical records including radiographs, microbiology, laboratory evaluations, and discussion with primary team and critical care nursing.
Subjective Dataa
Subjective Data
Date of Service:
Date of Service: March 22, 2025
Chief Complaint: Pharmaceutical Plant Operator Follow Up
Subjective:
Patient seen today at bedside. Patient's , at [facility], present at bedside. Patient mainly feels tired. Currently on insulin drip at 6 units/h and dobutamine at 3 mcg/kg/min. Heart rate 96, BP via A-line 125/53, BP via NIBP: 135/60, PAP
19/10, CO/CI: 5.72/2.7, respectively, and he is saturating 94% on CPAP trial with PEEP 10 and FiO2 40%.
Review of Systems
General: Other (Unobtainable - intubated)
Objective Data
Data Reviewed
Vital Signs / I&O / Oxygen:
Vital Signs
Temp Pulse Resp BP Pulse Ox
99 F 83 16 107/67 92
03/22/25 10:00 03/22/25 10:10 03/22/25 10:10 03/22/25 10:00 03/22/25 10:10
Intake and Output
03/21/25 03/22/25 03/23/25
06:59 06:59 06:59
Intake Total 868.9 / 925.4 604.4 / 604.4
Output Total 1177 / 1227 170 / 170
Balance -308.1 / -301.6 434.4 / 434.4
SaO2 [CPAP] 94
SaO2 [A/C] 95
SaO2 [SIMV] 99
SaO2 92
Physical Exam
General: Respiratory Distress (negative), Comfortable and Chills (negative)
HEENT: Normocephalic, Anicteric, Other (R-IJ cordis with PAC in place) and Other (ETT in place)
Cardiovascular: Murmur (LOBO heard across anterior precordium) and Peripheral Edema (+1 lower extremity edema bilaterally)
Respiratory: Wheeze (negative), Rhonchi (negative), Non-Labored Respirations, ET Tube (Mechanical breath sounds heard bilaterally) and Other (Coarse breath sounds bilaterally)
GI: Soft, Distended (Abdominal obesity), Non Tender and Normal Bowel Sounds
Neurology: Tremors (negative) and Other (Drowsy although easily arousable to voice, following commands)
Skin: Warm, Dry, Cyanosis (negative) and Jaundice (negative)
Labs/Micro/Reports
Lab Data
03/22/25 03:16
03/22/25 03:16
Laboratory Results
03/21/25 03/21/25 03/22/25
16:56 21:06 03:16
PT 16.2 H
INR 1.28
APTT 40.6 H
pH 7.39 7.40 7.40
pCO2 41 39 39
pO2 97 112 H 76 L
HCO3 24.8 24.2 24.2
O2 Delivery Level
03/22/25
09:18
PT
INR
APTT
pH 7.43
pCO2 37
pO2 71 L
HCO3 24.6
O2 Delivery Level
[2025-03-22] MEDS: OFIRMEV 100 IV (09:09)
[2025-03-22 09:30] LABS: B.E. 0.4 mmol/L; HCO3 24.6 mmol/L (21-28); O2 Saturation % 96.9 % (94-98); PCO2 37 mmHg (35-48); PO2 71 mmHg (83-108); Potassium 3.9 mMOL/L (3.5-5.1)
[2025-03-22] MEDS: ALBUMIN 5% 250 IV (09:43)
[2025-03-22] MEDS: MAGNESIUM OXIDE PO (09:48)
[2025-03-22] MEDS: SENOKOT PO (09:48)
[2025-03-22] MEDS: BACTROBAN 2% OINTMENT 1 APPLIC NASAL ×2 (09:48→19:55)
[2025-03-22] MEDS: NEURONTIN PO (09:48)
[2025-03-22 10:08] LABS: Glucose - Point of Care 146 mg/dl (70-99)
--- NOTE | 2025-03-22 10:11 | PTCARENOTE ---
per Dr. Castro, pt placed on PEEP 10 x30min, ABG and MVO2 drawn. FIT MODEL Ariana aware of results. Ofirmev given for pain. per FIT MODEL, pt placed on CPAP trail @~1005, PEEP 8/PSV 5, FIO2 40%. POX 93%. suctioned for scant/small amount of clear secretions. pt
nods appropriately, follows commands. BOLES.
[2025-03-22] MEDS: LIDOCAINE 4% PATCH 1 PATCH TOPICAL (10:26)
[2025-03-22 10:53] LABS: B.E. -0.2 mmol/L; HCO3 23.9 mmol/L (21-28); O2 Saturation % 98.9 % (94-98); PCO2 36 mmHg (35-48); PO2 94 mmHg (83-108); Potassium 3.8 mMOL/L (3.5-5.1)
[2025-03-22 10:55] LABS: Glucose - Point of Care 137 mg/dl (70-99)
--- NOTE | 2025-03-22 11:25 | RESPNOTE ---
Respiratory: patient extubated @1110 without incident. No stridor no wheeze.
[2025-03-22] MEDS: KCL 50 IV (11:36)
--- NOTE | 2025-03-22 12:00 | PTCARENOTE ---
ABG drawn on CPAP, HEALTH SOCIAL WORK PROFESSOR aware of results. pt extubated to 6LNC @1110 by RT, oriented x4. IS 750-1000ml. K repleted. pt states RLE feels 'like it has a marcell horse', slightly cooler than LLE, weakly palpable DP pulse verified by Doppler. HEALTH SOCIAL WORK PROFESSOR at
bedside to assess pt. GIBSON bandage removed per HEALTH SOCIAL WORK PROFESSOR.
[2025-03-22 12:06] LABS: Glucose - Point of Care 136 mg/dl (70-99)
[2025-03-22] MEDS: DILAUDID 0.25 MG IV (12:10)
[2025-03-22] MEDS: NSS IV (12:15)
--- NOTE | 2025-03-22 12:23 | W.PN.CD ---
Today's Communication / Plan
-
wean vent and inotropes
cont routine care
Impression / Plan
-
I/P: 50-year-old morbidly obese male former tobacco smoker with a past medical history of CAD, aortic valve stenosis, hypertension, mixed hyperlipidemia, history of sleep apnea, lung nodule, prediabetes, seasonal allergic rhinitis, diverticulosis,
history of herpes zoster and GERD who presents for elective AVR + CABG.
Severe s/p AVR #25 Inspiris Resilia with repairs to posterior annulus 2/2 bleeding
- stable monitor Hgb
CAD s/p CABG with SVG to D3 and SVG to RPDA
- statin aspirin plavix when appropriate
HTN
- currently requiring pressor support
Blood loss anemia 2/2 surgery
- monitor
HLD
- statin
Physical Exam
Vital Signs/Labs
Vital Signs
Temp Pulse Resp BP Pulse Ox
98.8 F 84 23 107/67 94
03/22/25 12:00 03/22/25 10:45 03/22/25 12:00 03/22/25 10:00 03/22/25 12:00
03/21/25 03/22/25 03/23/25
06:59 06:59 06:59
Actual Weight 217 lb 9.54 oz 233 lb 14.567 oz
03/22/25 03:16
03/22/25 03:16
PT 16.2 Sec (11.4-14.6) H 03/21/25 16:56
INR 1.28 03/21/25 16:56
APTT 40.6 Sec (23.4-35.0) H 03/21/25 16:56
Magnesium 2.1 mg/dl (1.6-2.3) 03/22/25 03:16
Triglycerides 91 mg/dl (10-149) 03/21/25 19:05
Physical Exam
Constitutional: No acute distress
EENT: Anicteric
Cardiovascular: Rhythm & rate is regular and Pedal edema is absent
Respiratory: Other (coarse b/s)
GI: Soft
Neuro/Psych: Other (ET tube in place appears to be alert )
Data Reviewed
-
Date of Service: March 22, 2025
Medical Decision Making: Reviewed Test Results
EKG: Tracing Personally Visualized and interpreted (sr)
Labs: Labs Reviewed by me
[2025-03-22 13:05] LABS: Glucose - Point of Care 151 mg/dl (70-99)
[2025-03-22] MEDS: PROTONIX 40 MG PO (13:44)
[2025-03-22] MEDS: PLAVIX 75 MG PO (13:44)
[2025-03-22] MEDS: TORADOL 15 MG IV (13:44)
[2025-03-22] MEDS: ROXICODONE 5 MG PO (13:44)
[2025-03-22] MEDS: LOW STRENGTH ASPIRIN 81 MG PO (13:44)
[2025-03-22 14:21] LABS: Glucose - Point of Care 135 mg/dl (70-99)
--- NOTE | 2025-03-22 15:41 | PTCARENOTE ---
pt VSS, no changes in assessment. Roxicodone and Toradol IVP given for pain as ordered. at bedside. IS encouraged. Dobutamine gtt running as ordered.
[2025-03-22 16:19] LABS: Glucose - Point of Care 127 mg/dl (70-99)
[2025-03-22] MEDS: NEURONTIN 100 MG PO ×2 (16:19→21:11)
[2025-03-22] MEDS: TYLENOL 650 MG PO (16:19)
[2025-03-22] MEDS: NOVOLOG FLEXPEN 4 UNITS SC (17:26)
[2025-03-22] MEDS: OCEAN, SALINE MIST 2 SPRAYS NASAL (17:31)
--- NOTE | 2025-03-22 17:39 | PTCARENOTE ---
RIJ Cordis/swan dressing changed. chest tube dressing changed, sites cleaned w/ CHG swabs. pt OOB to chair x2 assist. IS encouraged. AIR BAG BUILDER aware of MVO2 result, Dobutamine running as ordered.
[2025-03-22 18:07] LABS: Glucose - Point of Care 142 mg/dl (70-99)
[2025-03-22 19:13] LABS: Glucose - Point of Care 139 mg/dl (70-99)
[2025-03-22] MEDS: MYLICON 80 MG PO (19:54)
[2025-03-22] MEDS: SENOKOT 8.6 MG PO (19:54)
[2025-03-22] MEDS: MAGNESIUM OXIDE 400 MG PO (19:54)
[2025-03-22] MEDS: REMOVE LIDOCAINE PATCH 1 PATCH REMOVE (19:55)
--- NOTE | 2025-03-22 20:00 | PTCARENOTE ---
Assumed care of patient at 1999. Patient found oob in chair at time of assessment. Patient is AOx4, follows commands appropriately, moves all extremities. Lung sounds are diminished throughout, saO2 00% on 4L via NC, there are 2xmeds draining to one
atrium and a L pleural CT draining to another red sanguineous. Heart sounds are audible, patient is SR on the monitor, normal palpable pulses throughout. Patient has +2 genarlized anasarca and there are v wires present with VVI settings 30/15/0.8.
Patient has active BS throughout all four quadrants of round obese abdomen, +flatus, and fernandez draining clear yellow urine. There is a sternal incision with aquacell dressing that has a small amount of old drainage, R groin puncture approx with surg
adhesive KELVIN with ecchymosis around site, and RLE incision approx with surg adhesive BOARD SETTER. Patient has R AC PIV, L FA PIV, L radial erna, and RLE incision approx with surg adhesive BOARD SETTER. Patient is on dobut@2 and insulin gtt col 5. VSS. Patient c/o
gas pain mylicon added. Call menon within reach.
[2025-03-22 20:03] LABS: Glucose - Point of Care 114 mg/dl (70-99)
--- NOTE | 2025-03-22 20:08 | W.PN.ANS.POP ---
Anesthesia Post Operative
- Anesthesia Post Op Note
Vital Signs Stable-See Nursing Note: Yes
Airway Patent: Yes
Adequate Pain Control: Yes
Change in Mental Status: No
Current Postoperative Nausea & Vomiting: No
Anesthesia Complications: No
General Anesthetic Recall: No
Unplanned Admission: No
Post Op Hydration Adequate: Yes
[2025-03-22 21:09] LABS: Glucose - Point of Care 112 mg/dl (70-99)
[2025-03-22] MEDS: CRESTOR 40 MG PO (21:11)
[2025-03-22] MEDS: TYLENOL 975 MG PO (21:11)
[2025-03-22] MEDS: ULTRAM 50 MG PO (21:28)
[2025-03-22 22:16] LABS: Glucose - Point of Care 125 mg/dl (70-99)
[2025-03-23] VITALS (24 sets, daily range): BP systolic 110–136; BP diastolic 53–68; BMI 38.1
--- NOTE | 2025-03-23 | PTCARENOTE ---
Patient reassessed. VSS. Patient c/o 'cartoon characters' that were not there following oxy administration earlier in day. Pain management with tramadol now. Remains SR on the monitor. Call menon within reach.
[2025-03-23 00:14] LABS: Glucose - Point of Care 115 mg/dl (70-99)
[2025-03-23 02:09] LABS: Glucose - Point of Care 112 mg/dl (70-99)
[2025-03-23 03:15] LABS: Glucose - Point of Care 79 mg/dl (70-99)
[2025-03-23 03:29] LABS: Hematocrit 21.3 % (39.0-52.0); Hemoglobin 7.2 g/dL (13.0-18.0); Mean Corp Hgb Conc. 33.8 g/dL (33.0-37.0); Mean Corpuscular Volume 82.9 fL (80.0-94.0); Platelet Count 125 10^3/uL (130-400); Red Cell Dist. Width 16.0 % (11.5-14.5)
[2025-03-23] MEDS: ULTRAM 50 MG PO ×2 (03:30→23:15)
--- NOTE | 2025-03-23 03:48 | W.PN.CT ---
Today's Communication / Plan
-
Plan:
-No major issues overnight. Hemodynamically and neurologically intact
-Extubated yesterday 03/22/25 @ 1110
-Current drips: Dobutamine @ 2
-Last CI 3.61, MVO2 57.4%, U/O 945 mL /24hr
-Monitor chest tube output or possible D/C: 2meds 75/160, Left Pleural 50/110
-H/H 7.3/21.8 (fresh stick) this AM, likely partly hemodiluted (did receive Albumin yesterday), down from 03/26. Will transfuse 1u PRBC and diurese with Lasix 40 mg IV
-Will replete K, 3.7
-Monitor sodium, 133
-Holding BB while on dobutamine and hypotensive
-Cont. current meds (ASA, Plavix, Crestor)
-Wean dobutamine as tolerated
-Will d/c swan and a-line once off dobutamine
-Maintain fernandez catheter for accurate I/O's while on dobutamine
-Maintain cordis for meds and phlebotomy
-Maintain temporary v-wire
-OOB into chair/Ambulate
Assessment / Plan
-
Assessment:
-S/P Median sternotomy/CABG x 2 (GSV to D3, GSV to RPDA)/Endoscopic harvest/prep of RLE GSV/AVR (#25 Inspiris Resilia)/Excision of tricuspid stenotic AV w/ annular debridement/Pericardial patch annular enlargement/Pericardial patch aortic
augmentation/closure of aortotomy/Proximal GSV anastomoses x 2/ Attempted repair of posterior aortic annular bleeding - partially successful/ Additional repair of posterior aortic annular bleeding/Application of topical hemostatic agents, by
Gordon, 03/21/25, pod#2
-Severe
-Moderate AI
-Mild MR
-Trace TR
-Severe 2v CAD involving LAD and RCA
-LVEF 60% per intraop PEPE
-Hyperlipidemia
-HTN
-GERD
-Hx prediabetes, resolved
-Class 2 obesity (BMI 35.2)
-GINNA
-Fatty liver
-Former Tobacco use x 15 years
-Seasonal allergy
-Shingles
-Dysesthesia
-S/p ORIF right 3rd finger
-S/P ORIF right ankle
-Acute intraop/postop blood loss/Anemia (transfused 5u PRBC intraop)
-Acute intraop/postop thrombocytopenia (transfused 2 {5pks} plts intraop)
-Acute intraop/postop coagulopathy (received 3mg Factor VII)
-Acute postop VDRF
-Acute postop atelectasis
-Acute postop hypovolemia with subsequent hypervolemia
-Acute postop hyponatremia
Discussed patient care with: Cardiology, Nursing, Respiratory Therapy, Pharmacy and Care Team
Subjective
Procedure
S/P Median sternotomy/CABG x 2 (GSV to D3, GSV to RPDA)/Endoscopic harvest/prep of RLE GSV/AVR (#25 Inspiris Resilia)/Excision of tricuspid stenotic AV w/ annular debridement/Pericardial patch annular enlargement/Pericardial patch aortic
augmentation/closure of aortotomy/Proximal GSV anastomoses x 2/ Attempted repair of posterior aortic annular bleeding - partially successful/ Additional repair of posterior aortic annular bleeding/Application of topical hemostatic agents, by
Gordon, 03/21/25
-
Date of Service: March 23, 2025
Pt c/o incisional pain, otherwise feels well
Objective Data
-
Lab Results
03/23/25 03:17
PT 16.2 Sec (11.4-14.6) H 03/21/25 16:56
INR 1.28 03/21/25 16:56
APTT 40.6 Sec (23.4-35.0) H 03/21/25 16:56
Vital Signs
Vital Signs
Temp Pulse Resp BP Pulse Ox
99.3 F 99 22 121/57 94
03/23/25 03:00 03/23/25 03:30 03/23/25 03:30 03/23/25 03:00 03/23/25 03:00
CT Intake/Output/Weight
03/22/25 03/22/25 03/23/25
06:59 18:59 06:59
Intake Total 648.0 / 925.4 1022.6 / 1872.7 850.1 / 1872.7
Output Total 762 / 1227 655 / 1085 430 / 1085
Balance -114.0 / -301.6 367.6 / 787.7 420.1 / 787.7
SaO2: 94 (4L NC)
Physical Exam
-
General: Awake, Oriented and AOx3
Cardiovascular: Regular rate & rhythm, No Murmurs, Rub, No Rub and No Gallop
Respiratory: Decreased Breath Sounds (at bases, otherwise clear)
Sternum: Stable
Incision: Clean, Dry, Intact and Dressing Intact
Extremities: Edema +1
Data Reviewed
-
Lab Results: Results Reviewed
Medications: Active Meds Reviewed
Chest X-Ray: Report Reviewed and Image Reviewed
ECG: Report Reviewed and Image Reviewed
[2025-03-23 03:54] LABS: Blood Urea Nitrogen 25 mg/dl (9-20); Calcium 7.9 mg/dl (8.4-10.2); Carbon Dioxide 28 mmol/L (22-30); Chloride 107 mmol/L (98-107); Estimated Creatinine Clearance > 125 ml/min; Glucose 97 mg/dl (70-99); Magnesium 2.3 mg/dl (1.6-2.3); Potassium 3.7 mmol/L (3.5-5.1); Sodium 133 mmol/L (135-145); eGFR > 60.00
[2025-03-23 04:28] LABS: Glucose - Point of Care 130 mg/dl (70-99)
[2025-03-23 04:41] LABS: Hematocrit 21.8 % (39.0-52.0); Hemoglobin 7.3 g/dL (13.0-18.0); Mean Corp Hgb Conc. 33.5 g/dL (33.0-37.0); Mean Corpuscular Volume 83.5 fL (80.0-94.0); Platelet Count 137 10^3/uL (130-400); Red Cell Dist. Width 16.0 % (11.5-14.5)
[2025-03-23] MEDS: TYLENOL 975 MG PO ×3 (05:25→21:30)
[2025-03-23] MEDS: KCL 40 MEQ PO (05:25)
[2025-03-23 05:35] LABS: Glucose - Point of Care 133 mg/dl (70-99)
[2025-03-23] MEDS: DILAUDID 0.25 MG IV (05:47)
[2025-03-23 06:14] LABS: Glucose - Point of Care 130 mg/dl (70-99)
[2025-03-23] MEDS: LASIX 40 MG IV (06:19)
--- NOTE | 2025-03-23 06:41 | PTCARENOTE ---
Patient reassessed. VSS. AM labs obtained. Patient anemic hgb 7.3 confirmed with recheck CBC. Ordered 1 u PRBC. Given patient's volume status lasix administered following blood. AM hygiene care provided. Patient oob to chair. Remains in SR on the
monitor.
[2025-03-23 07:17] LABS: Glucose - Point of Care 130 mg/dl (70-99)
--- NOTE | 2025-03-23 07:44 | W.PN.INTV ---
Today's Communication / Plan
Recommendations
Extubated yesterday and now on 4 L/min nasal cannula saturating 94%
Continue dobutamine drip and trend MVO2 with goal >60�65; goal CI >2 -plan to remove [place] today
Continue insulin drip with goal BG 110�140
Pain control
Encourage incentive spirometer
Continue DAPT with aspirin + Plavix
High intensity statin
Net Application Architect service will continue to follow along while pt remains in CVICU. Once transferred to CVICU�telemetry status then we will sign off at that time.
Assessment
-
Assessment: 50-year-old morbidly obese male former tobacco smoker with a past medical history of CAD, aortic valve stenosis, hypertension, mixed hyperlipidemia, history of sleep apnea, lung nodule, prediabetes, seasonal allergic rhinitis,
diverticulosis, history of herpes zoster and GERD who presents for elective AVR + CABG. Patient known to the cardiothoracic surgery service with the last visit on 02/11/[address] Leyva. Echo in November 2024 showed probable bicuspid aortic valve
with likely severe aortic stenosis with peak/mean gradients of 96/54 mmHg, DARRYN 1 cm� and DVI 0.31. Also mild�moderate AI. The LVEF was 60 to 65% with normal biventricular size and no regional WMA. Subsequent left and right heart catheterization
on 01/16/2025 showed severely elevated filling pressures with PCWP 25 mmHg, with a mPAP mildly elevated at 29 mmHg, preserved PVR at 0.92, TPG WNL at 5, and right dominant circulation with an 80% lesion is a substantial D3 and chronic total occlusion
of the proximal RCA supplied from collaterals from left circulation. CT surgery discussed surgical intervention which he agreed to. On 03/21/2025, the pt underwent CABG x 2 with excision of tricuspid stenotic AV with annular debridement,
pericardial patch annular enlargement, AVR with #25 Inspiris Resilia, pericardial patch aortic augmentation/closure of aortotomy, and repair of posterior aortic annular bleeding which required re-establishment of cardiopulmonary bypass. Patient was
transferred to the CVICU postoperatively, and Net Application Architect service consulted for additional management/recommendations.
Chronic conditions CERTIFIED ORTHOPTIST: Hypertension, hyperlipidemia, GERD, fatty liver disease, dysesthesia, aortic valve stenosis, aortic valve regurgitation, prediabetes, former tobacco smoker, lung nodule, sleep apnea, atherosclerosis of aorta, seasonal
allergic rhinitis, history of diverticulosis, right third finger ORIF, history of herpes zoster, CAD
Impression:
#Severe aortic stenosis + moderate aortic insufficiency s/p surgical aortic valve replacement with #25 Inspiris Resilia - POD#2
#CAD with DESK TOP PUBLISHER of RCA and 80% stenosis of D3 s/p CABG x 2 (GSV to D3, GSV to RPDA) - POD#2
#s/p excision of tricuspid stenotic AV with annular debridement, pericardial patch annular enlargement, pericardial patch and aortic augmentation/closure of aortotomy, with posterior aortic aneurysm bleeding repair requiring reestablishment of CPB-
POD#2
#Acute anemia due to above
#Acute thrombocytopenia due to above
#Hyperglycemia (mild)
#Hypocalcemia
#History of COVID-19 (05/06/2020)
#Obesity (BMI: 35.1) with fatty liver disease
#GERD
#Hypertension/hyperlipidemia
#Former tobacco smoker (smoked 1 pack/week for 20 years, quit in 2009)
#Severe GINNA on CPAP
Plan:
Patient was successfully extubated on 03/22/2025, and is now on 4 L/min nasal cannula saturating 94% and breathing comfortably
Continue weaning down supplemental O2 flow rate while maintaining SpO2 >90-94%
prn nebulized bronchodilators - not currently bronchospastic
Encourage incentive spirometer q1hr while awake
Pulmonary artery catheter parameters will be followed
Pressors/antihypertensive/inotropes/diuretics will be provided as needed
Maintain MAP>65
Replete electrolytes with K>4, Mg>2
Monitor chest tube output (mediastinal chest tubes x 2 and left pleural chest tubes x 1)
Monitor hemoglobin
Monitor platelet count and coags
Transfuse blood products as needed to maintain Hb>7g/dL, plt>50k (given post-operative status)
CT surgery managing chest tubes
Monitor blood sugar to maintain euglycemia with goal BG 110-140
Insulin drip per protocol
Aspiration precautions
DVT prophylaxis
Early nutrition
Early mobilization
Net Application Architect service will continue to follow along while pt remains in CVICU. Once transferred to CVICU�telemetry status then we will sign off at that time.
Critical care statement: A total of 38 minutes of critical care time was provided for this patient today. This includes management of ventilator, spontaneous breathing trial, arterial blood gases, pressors, of unstable vital signs, evaluation of the
patient at bedside, reviewing the patient's pertinent medical records including radiographs, microbiology, laboratory evaluations, and discussion with primary team and critical care nursing.
Subjective Dataa
Subjective Data
Date of Service:
Date of Service: March 23, 2025
Chief Complaint: Net Application Architect Follow Up
Subjective:
Patient seen today. Currently on dobutamine at 2 mcg/kg/min and insulin drip at 10 units/hr. On 4 L/min nasal cannula. Heart rate 97, BP via A-line: 1 3751, PAP 24/11, BP via NIBP: 124/64, and CO/CI: 7.65/3.61. He feels tired but is otherwise in
no acute distress. Patient's is at bedside and all questions answered.
Review of Systems
General: Other (Negative unless mentioned above)
Objective Data
Data Reviewed
Vital Signs / I&O / Oxygen:
Vital Signs
Temp Pulse Resp BP Pulse Ox
98.8 F 93 25 126/57 93
03/23/25 07:15 03/23/25 07:15 03/23/25 07:15 03/23/25 06:19 03/23/25 07:15
Intake and Output
03/22/25 03/23/25 03/24/25
06:59 06:59 06:59
Intake Total 868.9 / 925.4 2237.6 / 2237.6 60.9 / 60.9
Output Total 1177 / 1227 1360 / 1360 380 / 380
Balance -308.1 / -301.6 877.6 / 877.6 -319.1 / -319.1
SaO2 [CPAP] 94
SaO2 [A/C] 95
SaO2 [SIMV] 99
SaO2 93
Nasal Cannula flow liters per 4
minute
Physical Exam
General: Respiratory Distress (negative), Comfortable and Chills (negative)
HEENT: Normocephalic, Anicteric and Other (R-IJ cordis with PAC in place)
Cardiovascular: S1-S2, Regular Rhythm, Murmur (LOBO heard across anterior precordium) and Peripheral Edema (Trace lower extremity edema bilaterally)
Respiratory: Wheeze (negative), Rhonchi (Bibasilar), Non-Labored Respirations, Chest Tube (Mediastinal chest tubes x 2 and left pleural chest tube x 1) and Other (Coarse breath sounds bilaterally)
GI: Soft, Distended (Abdominal obesity), Non Tender and Normal Bowel Sounds
Neurology: Awake, Alert, Oriented and Tremors (negative)
Skin: Warm, Dry, Cyanosis (negative) and Jaundice (negative)
Labs/Micro/Reports
Lab Data
03/23/25 04:23
03/23/25 03:17
Laboratory Results
03/22/25 03/22/25
09:18 10:31
pH 7.43 7.43
pCO2 37 36
pO2 71 L 94
HCO3 24.6 23.9
O2 Delivery Level
--- NOTE | 2025-03-23 08:00 | PTCARENOTE ---
Assumed care of patient at 0700. Patient OOB in chair at time of assessment. Patient is AOx4, follows commands appropriately, moves all extremities. Lung sounds are diminished throughout, saO2 91-97% on 4L via NC, there are 2xmeds draining to one
atrium and a L pleural CT draining to another red sanguineous. Heart sounds are audible, patient is SR on the monitor, rate 91, normal palpable pulses in upper extremities, doppler used for lower extremities. Patient has +2 genarlized anasarca and
there are v wires present with VVI settings 30/15/0.8. Patient has active BS throughout all four quadrants of round obese abdomen, +flatus, and fernandez draining clear yellow urine. There is a sternal incision with aquacell dressing that has a small
amount of old drainage, R groin puncture approx with surg adhesive KELVIN with ecchymosis around site, and RLE incision approx with surg adhesive LIFE COACH. Patient has R AC PIV, L FA PIV, L radial erna, and RLE incision approx with surg adhesive LIFE COACH.
Patient is on dobut@2 and insulin gtt col 5. VSS. Patient c/o gas pain mylicon added. Call menon within reach.
[2025-03-23] MEDS: NEURONTIN 100 MG PO ×3 (08:21→21:30)
[2025-03-23] MEDS: MYLICON 80 MG PO (08:21)
[2025-03-23] MEDS: PROTONIX 40 MG PO (08:21)
[2025-03-23] MEDS: SENOKOT 8.6 MG PO ×2 (08:21→19:59)
[2025-03-23] MEDS: LOW STRENGTH ASPIRIN 81 MG PO (08:22)
[2025-03-23] MEDS: BACTROBAN 2% OINTMENT 1 APPLIC NASAL ×2 (08:22→19:59)
[2025-03-23] MEDS: LIDOCAINE 4% PATCH 1 PATCH TOPICAL (08:22)
[2025-03-23] MEDS: PLAVIX 75 MG PO (08:22)
[2025-03-23] MEDS: MAGNESIUM OXIDE 400 MG PO ×2 (08:23→19:59)
[2025-03-23] MEDS: NOVOLOG FLEXPEN SC ×2 (08:26→12:02)
[2025-03-23 09:27] LABS: Glucose - Point of Care 115 mg/dl (70-99)
[2025-03-23] MEDS: NSS 500 IV (10:21)
[2025-03-23] MEDS: ZESTRIL 10 MG PO (10:42)
[2025-03-23 11:15] LABS: Glucose - Point of Care 139 mg/dl (70-99)
--- NOTE | 2025-03-23 11:24 | PTCARENOTE ---
Pt remains OOB in chair. Minimal appetite. Continued on insulin gtt, column 5. Dobutamin @2. Repositioning PRN. Lisinopril restarted.
[2025-03-23] MEDS: NOVOLIN R INSULIN INFUSION 100 IV (12:38)
--- NOTE | 2025-03-23 12:48 | W.PN.CD ---
Today's Communication / Plan
-
OOB ambulate if able
monitor tele and BP
Impression / Plan
-
I/P: 50-year-old morbidly obese male former tobacco smoker with a past medical history of CAD, aortic valve stenosis, hypertension, mixed hyperlipidemia, history of sleep apnea, lung nodule, prediabetes, seasonal allergic rhinitis, diverticulosis,
history of herpes zoster and GERD who presents for elective AVR + CABG.
Severe s/p AVR #25 Inspiris Resilia with repairs to posterior annulus 2/2 bleeding
- stable monitor Hgb
CAD s/p CABG with SVG to D3 and SVG to RPDA
- statin aspirin plavix when appropriate
HTN
- BP elevated
- agree with lisinopril addition
Blood loss anemia 2/2 surgery
- monitor
HLD
- statin
Physical Exam
Vital Signs/Labs
Vital Signs
Temp Pulse Resp BP Pulse Ox
99.5 F 97 25 124/64 95
03/23/25 11:00 03/23/25 12:00 03/23/25 12:00 03/23/25 12:04 03/23/25 10:00
03/22/25 03/23/25 03/24/25
06:59 06:59 06:59
Actual Weight 233 lb 14.567 oz 236 lb 1.841 oz
03/23/25 04:23
03/23/25 03:17
PT 16.2 Sec (11.4-14.6) H 03/21/25 16:56
INR 1.28 03/21/25 16:56
APTT 40.6 Sec (23.4-35.0) H 03/21/25 16:56
Magnesium 2.3 mg/dl (1.6-2.3) 03/23/25 03:17
Triglycerides 91 mg/dl (10-149) 03/21/25 19:05
Physical Exam
Constitutional: No acute distress and Comfortable
EENT: Anicteric
Cardiovascular: Rhythm & rate is regular and Pedal edema is absent
Respiratory: Lungs clear to auscul.
GI: Soft
Neuro/Psych: Alert and Oriented
Data Reviewed
-
Date of Service: March 23, 2025
EKG: Tracing Personally Visualized and interpreted (sr)
Labs: Labs Reviewed by me
[2025-03-23 13:12] LABS: Glucose - Point of Care 109 mg/dl (70-99)
[2025-03-23 14:41] LABS: Hematocrit 24.3 % (39.0-52.0); Hemoglobin 8.1 g/dL (13.0-18.0); Mean Corp Hgb Conc. 33.3 g/dL (33.0-37.0); Mean Corpuscular Volume 82.7 fL (80.0-94.0); Platelet Count 159 10^3/uL (130-400); Red Cell Dist. Width 16.0 % (11.5-14.5)
--- NOTE | 2025-03-23 17:11 | PTCARENOTE ---
[place] discontinued, cordis remains intact. Dobutamin gtt continued @ 2 with KVO. Morales care completed. Chest tubes x3 remain to wall suction. Insulin gtt transitioned to sliding scale. Temp manuel to 99.8F earlier in shift, now back down to 98.4F.
Frequently repositioned to prevent skin breakdown. OOB and I.S use encouraged. 4LNC, denies shortness of breath. L radial A-line intact and leveled. Hgb redraw 8.1. V-wire maintained. Surgical incisions clean, dry, intact.
[2025-03-23 18:39] LABS: Glucose - Point of Care 121 mg/dl (70-99)
[2025-03-23] MEDS: DOBUTREX 250 IV (18:46)
[2025-03-23] MEDS: REMOVE LIDOCAINE PATCH 1 PATCH REMOVE (20:00)
--- NOTE | 2025-03-23 20:46 | PTCARENOTE ---
Assumed care of patient at 1900. Patient returned to bed after OOB to chair. Patient is AOx3, follows all commands, denies pain at this time Lung sounds are diminished at bases, saO2 99% on 4L via NC, Chest Tube x 3,2 meds and ! pleural draining
red sanguineous. Heart sounds are audible, patient is SR to ST on the monitor, palpable pulses in upper extremities, weak on for lower extremities, on dobut @ 2 . Patient has +2 genarlized edema, temp pacer with v wires with VVI settings
30/15/0.8. Patient hyperactive BS throughout round nontender abdomen, +flatus, and fernandez draining clear yellow urine. Sternal incision aquacell dressing small old drainage, R groin puncture KELVIN and ecchymosis, and RLE incision approx, glued KELVIN.
[2025-03-23] MEDS: FLEXERIL 5 MG PO (21:23)
[2025-03-23] MEDS: CRESTOR 40 MG PO (21:30)
[2025-03-24] VITALS (15 sets, daily range): BP systolic 103–135; BP diastolic 33–86; PULSE 94; O2SAT 96; BMI 37.7
--- NOTE | 2025-03-24 | PTCARENOTE ---
patient resting comfortably, prior back pain resolved with prn medication.
--- NOTE | 2025-03-24 03:52 | W.PN.CT ---
Today's Communication / Plan
-
Plan:
-No major issues overnight. Hemodynamically and neurologically intact
-Current drips: Dobutamine @ 2
-D/C'd swan yesterday 03/22/25, MVO2 off Cordis this AM is 65.5%, U/O 1545 mL/24hr
-Monitor chest tube output or possible D/C: 2meds 40/150, Left Pleural
-Received 1u PRBC yesterday, H/H 7.0/21.6 this AM, was 7.3/21.8 in the AM and 8.1/24.3 in the afternoon. May need to repeat
-Check wt today, cont. diuresis
-Will replete electrolytes
-Monitor sodium, 134, was 133 yesterday
-Holding BB while on dobutamine and hypotensive
-Cont. current meds (ASA, Plavix, Crestor)
-Wean dobutamine as tolerated
-Will d/c a-line once off dobutamine
-Will d/c fernandez catheter once off dobutamine
-Maintain cordis another for meds and phlebotomy, poor peripheral vein access
-Maintain temporary v-wire, will cut befor d/c home
-OOB into chair/Ambulate
-Home in 1-2 days
Assessment / Plan
-
Assessment:
-S/P Median sternotomy/CABG x 2 (GSV to D3, GSV to RPDA)/Endoscopic harvest/prep of RLE GSV/AVR (#25 Inspiris Resilia)/Excision of tricuspid stenotic AV w/ annular debridement/Pericardial patch annular enlargement/Pericardial patch aortic
augmentation/closure of aortotomy/Proximal GSV anastomoses x 2/ Attempted repair of posterior aortic annular bleeding - partially successful/ Additional repair of posterior aortic annular bleeding/Application of topical hemostatic agents, by
Gordon, 03/21/25, pod#3
-Severe
-Moderate AI
-Mild MR
-Trace TR
-Severe 2v CAD involving LAD and RCA
-LVEF 60% per intraop PEPE
-Hyperlipidemia
-HTN
-GERD
-Hx prediabetes, resolved
-Class 2 obesity (BMI 35.2)
-GINNA
-Fatty liver
-Former Tobacco use x 15 years
-Seasonal allergy
-Shingles
-Dysesthesia
-S/p ORIF right 3rd finger
-S/P ORIF right ankle
-Acute intraop/postop blood loss/Anemia (transfused 5u PRBC intraop)
-Acute intraop/postop thrombocytopenia (transfused 2 {5pks} plts intraop)
-Acute intraop/postop coagulopathy (received 3mg Factor VII)
-Acute postop VDRF
-Acute postop atelectasis
-Acute postop hypovolemia with subsequent hypervolemia
-Acute postop hyponatremia
Discussed patient care with: Cardiology, Nursing, Respiratory Therapy, Pharmacy and Care Team
Subjective
Procedure
-S/P Median sternotomy/CABG x 2 (GSV to D3, GSV to RPDA)/Endoscopic harvest/prep of RLE GSV/AVR (#25 Inspiris Resilia)/Excision of tricuspid stenotic AV w/ annular debridement/Pericardial patch annular enlargement/Pericardial patch aortic
augmentation/closure of aortotomy/Proximal GSV anastomoses x 2/ Attempted repair of posterior aortic annular bleeding - partially successful/ Additional repair of posterior aortic annular bleeding/Application of topical hemostatic agents, by
Gordon, 03/21/25
-
Date of Service: March 24, 2025
Pt c/o mild incisional pain, otherwise feels well
Objective Data
-
PT 16.2 Sec (11.4-14.6) H 03/21/25 16:56
INR 1.28 03/21/25 16:56
APTT 40.6 Sec (23.4-35.0) H 03/21/25 16:56
Vital Signs
Vital Signs
Temp Pulse Resp BP Pulse Ox
99 F 91 20 124/55 96
03/23/25 23:00 03/24/25 02:00 03/24/25 02:06 03/24/25 02:06 03/24/25 02:06
CT Intake/Output/Weight
03/23/25 03/23/25 03/24/25
06:59 18:59 06:59
Intake Total 1215.0 / 2237.6 430.8 / 784.0 353.2 / 784.0
Output Total 705 / 1360 1190 / 1635 445 / 1635
Balance 510.0 / 877.6 -759.2 / -851.0 -91.8 / -851.0
SaO2: 95 (2L)
Physical Exam
-
General: Awake, Oriented and AOx3
Cardiovascular: Regular rate & rhythm, No Murmurs, No Rub and No Gallop
Respiratory: Decreased Breath Sounds (at bases, otherwise clear)
Sternum: Stable
Incision: Clean, Dry, Intact and Dressing Intact
Extremities: Edema +1
Data Reviewed
-
Lab Results: Results Reviewed
Medications: Active Meds Reviewed
Chest X-Ray: Report Reviewed and Image Reviewed
ECG: Report Reviewed and Image Reviewed
--- NOTE | 2025-03-24 04:18 | PTCARENOTE ---
Reassessed patient, alext, oriented, denies pain. repositioned in bed, instructed on IS use 1000, VVS, labs drawn, miniumal output in Chest tubes. Morales clear yellow.
[2025-03-24 04:33] LABS: Hematocrit 21.6 % (39.0-52.0); Hemoglobin 7.0 g/dL (13.0-18.0); Mean Corp Hgb Conc. 32.4 g/dL (33.0-37.0); Mean Corpuscular Volume 85.7 fL (80.0-94.0); Platelet Count 118 10^3/uL (130-400); Red Cell Dist. Width 16.3 % (11.5-14.5)
[2025-03-24 04:48] LABS: Blood Urea Nitrogen 22 mg/dl (9-20); Calcium 7.6 mg/dl (8.4-10.2); Carbon Dioxide 31 mmol/L (22-30); Chloride 105 mmol/L (98-107); Estimated Creatinine Clearance > 125 ml/min; Glucose 119 mg/dl (70-99); Magnesium 2.4 mg/dl (1.6-2.3); Potassium 4.1 mmol/L (3.5-5.1); Sodium 134 mmol/L (135-145); eGFR > 60.00
[2025-03-24] MEDS: TYLENOL 975 MG PO ×3 (06:02→19:52)
--- NOTE | 2025-03-24 07:33 | W.PN.INTV ---
Today's Communication / Plan
Recommendations
Dobutamine continues, being weaned off
Urine output adequate
Chest x-ray and chest exam improved
Chest tube management per CT surgery
Follow hemoglobin, transfuse per CT surgery protocol
Assessment
-
Assessment: 50-year-old morbidly obese male former tobacco smoker with a past medical history of CAD, aortic valve stenosis, hypertension, mixed hyperlipidemia, history of sleep apnea, lung nodule, prediabetes, seasonal allergic rhinitis,
diverticulosis, history of herpes zoster and GERD who presents for elective AVR + CABG. Patient known to the cardiothoracic surgery service with the last visit on 02/11/[address] Leyva. Echo in November 2024 showed probable bicuspid aortic valve
with likely severe aortic stenosis with peak/mean gradients of 96/54 mmHg, DARRYN 1 cm� and DVI 0.31. Also mild�moderate AI. The LVEF was 60 to 65% with normal biventricular size and no regional WMA. Subsequent left and right heart catheterization
on 01/16/2025 showed severely elevated filling pressures with PCWP 25 mmHg, with a mPAP mildly elevated at 29 mmHg, preserved PVR at 0.92, TPG WNL at 5, and right dominant circulation with an 80% lesion is a substantial D3 and chronic total occlusion
of the proximal RCA supplied from collaterals from left circulation. CT surgery discussed surgical intervention which he agreed to. On 03/21/2025, the pt underwent CABG x 2 with excision of tricuspid stenotic AV with annular debridement,
pericardial patch annular enlargement, AVR with #25 Inspiris Resilia, pericardial patch aortic augmentation/closure of aortotomy, and repair of posterior aortic annular bleeding which required re-establishment of cardiopulmonary bypass. Patient was
transferred to the CVICU postoperatively, and Pole Frame Construction Worker service consulted for additional management/recommendations.
Chronic conditions TOOL INSPECTOR: Hypertension, hyperlipidemia, GERD, fatty liver disease, dysesthesia, aortic valve stenosis, aortic valve regurgitation, prediabetes, former tobacco smoker, lung nodule, sleep apnea, atherosclerosis of aorta, seasonal
allergic rhinitis, history of diverticulosis, right third finger ORIF, history of herpes zoster, CAD
Impression:
#Severe aortic stenosis + moderate aortic insufficiency s/p surgical aortic valve replacement with #25 Inspiris Resilia - POD#2
#CAD with DIRECTOR OF HOSPITALITY of RCA and 80% stenosis of D3 s/p CABG x 2 (GSV to D3, GSV to RPDA) - POD#2
#s/p excision of tricuspid stenotic AV with annular debridement, pericardial patch annular enlargement, pericardial patch and aortic augmentation/closure of aortotomy, with posterior aortic aneurysm bleeding repair requiring reestablishment of CPB-
POD#2
#Acute anemia due to above
#Acute thrombocytopenia due to above
#Hyperglycemia (mild)
#Hypocalcemia
#History of COVID-19 (05/06/2020)
#Obesity (BMI: 35.1) with fatty liver disease
#GERD
#Hypertension/hyperlipidemia
#Former tobacco smoker (smoked 1 pack/week for 20 years, quit in 2009)
#Severe GINNA on CPAP
Plan/recommendations
At this time, patient appears to be objectively and subjectively improved
Oxygen requirement improving
Chest exam is clear
Chest x-ray without acute findings
Chest tube in place
Moving forward
Patient maintained on dobutamine, being weaned off
Electrolytes being followed
Monitor chest tube output per CT surgery
Possible discontinuation later today
Follow hemoglobin, transfuse per CT surgery protocol
Hemoglobin 7.2, stable
Insulin drip discontinued
Follow blood sugars
Aspiration precautions
DVT prophylaxis
Early nutrition
Early mobilization
Reviewed with critical care nursing
Critical care statement: A total of 31 minutes of critical care time was provided for this patient today. This includes management of ventilator, spontaneous breathing trial, arterial blood gases, pressors, of unstable vital signs, evaluation of the
patient at bedside, reviewing the patient's pertinent medical records including radiographs, microbiology, laboratory evaluations, and discussion with critical care nursing.
Subjective Dataa
Subjective Data
Date of Service:
Date of Service: March 24, 2025
Chief Complaint: Pole [employer] Construction Worker Follow Up
Subjective:
Patient remains critically ill with heart dobutamine. Appears to be comfortable, sitting at edge of bed. Chest tubes in place. Denies significant shortness of breath, nausea, abdominal pain
Objective Data
Data Reviewed
Vital Signs / I&O / Oxygen:
Vital Signs
Temp Pulse Resp BP Pulse Ox
99 F 99 22 135/56 98
03/24/25 06:38 03/24/25 06:38 03/24/25 06:38 03/24/25 06:38 03/24/25 06:38
Intake and Output
03/23/25 03/24/25 03/25/25
06:59 06:59 06:59
Intake Total 2237.6 / 2237.6 935.6 / 948.5 12.9 / 12.9
Output Total 1360 / 1360 193 / 2024 90 / 90
Balance 877.6 / 877.6 -999.4 / -1076.5 -77.1 / -77.1
SaO2 [CPAP] 94
SaO2 [A/C] 95
SaO2 [SIMV] 99
SaO2 98
Nasal Cannula flow liters per 4
minute
Physical Exam
General: Comfortable
HEENT: Normocephalic, Anicteric and Other (R-IJ cordis)
Cardiovascular: S1-S2, Regular Rhythm, Murmur (n) and Peripheral Edema (Trace lower extremity edema bilaterally)
Respiratory: Wheeze (n), Crackles (n), Rhonchi (n), Non-Labored Respirations, Stridor (n), Crepitus (n) and Chest Tube (no air leak)
GI: Soft, Distended (Abdominal obesity), Non Tender and Normal Bowel Sounds
Neurology: Awake, Alert and No Motor Deficits (Moves all extremities)
Skin: Warm, Dry, Cyanosis (n) and Jaundice (negativen)
Labs/Micro/Reports
Lab Data
03/24/25 04:06
[2025-03-24 07:39] LABS: Hematocrit 21.1 % (39.0-52.0); Hemoglobin 7.2 g/dL (13.0-18.0); Mean Corp Hgb Conc. 34.1 g/dL (33.0-37.0); Mean Corpuscular Volume 81.8 fL (80.0-94.0); Platelet Count 133 10^3/uL (130-400); Red Cell Dist. Width 16.1 % (11.5-14.5)
[2025-03-24] MEDS: NEURONTIN 100 MG PO ×3 (08:05→19:51)
[2025-03-24] MEDS: LASIX 40 MG IV ×2 (08:05→13:35)
[2025-03-24] MEDS: PLAVIX 75 MG PO (08:05)
[2025-03-24] MEDS: SENOKOT 8.6 MG PO ×2 (08:05→19:51)
[2025-03-24] MEDS: LOW STRENGTH ASPIRIN 81 MG PO (08:05)
[2025-03-24] MEDS: PROTONIX 40 MG PO (08:06)
[2025-03-24] MEDS: LIDOCAINE 4% PATCH TOPICAL (08:06)
[2025-03-24] MEDS: ZESTRIL 10 MG PO (08:06)
[2025-03-24] MEDS: BACTROBAN 2% OINTMENT 1 APPLIC NASAL ×2 (08:06→19:51)
[2025-03-24 08:41] LABS: Glucose - Point of Care 135 mg/dl (70-99)
--- NOTE | 2025-03-24 08:43 | W.PN.CD ---
Today's Communication / Plan
-
-Hemoglobin is stable; continue to monitor.
-Remains in sinus rhythm on telemetry.
-Continue current medications.
-Continue management as directed by CT surgery team.
Impression / Plan
-
I/P: 50-year-old morbidly obese male former tobacco smoker with a past medical history of CAD, aortic valve stenosis, hypertension, mixed hyperlipidemia, history of sleep apnea, lung nodule, prediabetes, seasonal allergic rhinitis, diverticulosis,
history of herpes zoster and GERD who presents for elective AVR + CABG.
Severe s/p AVR #25 Inspiris Resilia with repairs to posterior annulus 2/2 bleeding
-Hemoglobin is stable; continue to monitor.
-Remains in sinus rhythm on telemetry.
CAD s/p CABG with SVG to D3 and SVG to RPDA
-Continue aspirin, Plavix, and rosuvastatin.
HTN
- BP elevated
- Stable/controlled.
HLD
-Continue rosuvastatin.
Physical Exam
Vital Signs/Labs
Vital Signs
Temp Pulse Resp BP Pulse Ox
98.4 F 94 20 135/56 94
03/24/25 08:00 03/24/25 08:00 03/24/25 08:00 03/24/25 06:38 03/24/25 08:00
03/23/25 03/24/25 03/25/25
06:59 06:59 06:59
Actual Weight 107.1 kg 105.8 kg
03/24/25 06:57
03/24/25 04:06
PT 16.2 Sec (11.4-14.6) H 03/21/25 16:56
INR 1.28 03/21/25 16:56
APTT 40.6 Sec (23.4-35.0) H 03/21/25 16:56
Magnesium 2.4 mg/dl (1.6-2.3) H 03/24/25 04:06
Triglycerides 91 mg/dl (10-149) 03/21/25 19:05
Physical Exam
Constitutional: No acute distress and Comfortable
EENT: Anicteric
Cardiovascular: Rhythm & rate is regular, Pedal edema present (trace), Systolic murmur present (2/6) and S1S2 is normal
Respiratory: Respiratory effort normal and Lungs clear to auscul.
GI: Soft
Neuro/Psych: AO x 3
Other: Skin (Warm, dry, intact)
Data Reviewed
-
Date of Service: March 24, 2025
EKG: Tracing Personally Visualized and interpreted (Telemetry: Sinus rhythm)
Medical Tests (PFT, Pathology etc): Discussed with Nurse and Discussed with Patient
Labs: Labs Reviewed by me
Critical Care Time (in minutes): 36
--- NOTE | 2025-03-24 08:45 | PTCARENOTE ---
Assumed care of patient at 0700. Pt is awake, alert, and oriented. Pt with no complaints of sternal pain. Pt remains SR with HR 97. BP 126/52 MAP 77. Epicardial V wire in place set to VVI 30/15/0.8. Pt with +2 edema. Pulse oximetry 95% on room air.
Pt with productive cough. Achieving 750 with IS, continued use encouraged. Mediastinal chest tubes x2 and left pleural chest tubes d/c'd this morning per order. Pt with overall poor appetite, however tolerating PO diet. Morales catheter remains in
place per order. Midsternal incision post-op dressing in place. Right leg incision approximated and KELVIN. Right groin puncture intact. Right IJ Cordis in place. Left radial Patrizia remains intact. Remains on Dobutmaine now titrated to 1mcg/kg/min.
--- NOTE | 2025-03-24 12:45 | PTCARENOTE ---
MvO2 54.9. Reviewed with CT NEHEMIAH, Ariana. Dobutamine d/c'd per order. [facility] d/c'd. V wire insulated. Pt OOB to chair.
[2025-03-24 13:43] LABS: Glucose - Point of Care 132 mg/dl (70-99)
[2025-03-24] MEDS: NSS IV (13:48)
[2025-03-24] MEDS: PACERONE 200 MG PO ×2 (16:30→21:54)
[2025-03-24 16:52] LABS: Glucose - Point of Care 101 mg/dl (70-99)
--- NOTE | 2025-03-24 16:53 | PTCARENOTE ---
Pt ambulated in hallway with RN assistance, tolerated well. Pt remains SR with HR 90's. BP 118/56 MAP 73. Pulse oximetry 97% on room air. Pt achieving 1200 with IS. Morales catheter d/c'd per order, pt due to void by 2244.
[2025-03-24] MEDS: LOPRESSOR 12.5 MG PO (19:51)
[2025-03-24] MEDS: REMOVE LIDOCAINE PATCH REMOVE (19:53)
--- NOTE | 2025-03-24 20:00 | PTCARENOTE ---
assumed care of pt from previous RN. pt A&Ox4, resting in bed at time of assessment. SR on tele-monitor. temp epicardial v-wires insulated. POx 95% on RA. abd s/n, round, obese. +BS. pt confirms passing gas. pt voided macey colored urine in urinal.
all surgical sites stable, CDI. R IJ cordis w/ KVO. PIV intact. see worklist for complete nursing assessment, interventions, VS, and I&Os.
[2025-03-24] MEDS: CRESTOR 40 MG PO (21:54)
[2025-03-24 21:58] LABS: Glucose - Point of Care 116 mg/dl (70-99)
[2025-03-24] MEDS: ULTRAM 50 MG PO (23:30)
--- NOTE | 2025-03-24 23:30 | PTCARENOTE ---
assessment remains unchanged. VSS.
[2025-03-25] VITALS (9 sets, daily range): BP systolic 112–125; BP diastolic 48–69; PULSE 83; O2SAT 96–100; BMI 37.1; BMI 37.0
--- NOTE | 2025-03-25 03:26 | W.PN.CT ---
Today's Communication / Plan
-
Plan:
-No major issues overnight. Hemodynamically and neurologically intact
-Off all drips
-Tolerating resumption of BB, Lisinopril added
-Monitor h/h 7.1/21.4, likely hemodilutional. Wt is up 12 lbs from preop. Minimize fluid intake, continue diuresis
-Will replete electrolytes
-Monitor sodium, 132, was 134 yesterday
-Cont. current meds (ASA, Plavix, Crestor, Lopressor, Lisinopril)
-D/C cordis
-F/U 2-view cxr
-Encourage use of IS
-Maintain temporary v-wire, will cut before d/c home
-OOB into chair/Ambulate
-Home likely tomorrow
Assessment / Plan
-
Assessment:
-S/P Median sternotomy/CABG x 2 (GSV to D3, GSV to RPDA)/Endoscopic harvest/prep of RLE GSV/AVR (#25 Inspiris Resilia)/Excision of tricuspid stenotic AV w/ annular debridement/Pericardial patch annular enlargement/Pericardial patch aortic
augmentation/closure of aortotomy/Proximal GSV anastomoses x 2/ Attempted repair of posterior aortic annular bleeding - partially successful/ Additional repair of posterior aortic annular bleeding/Application of topical hemostatic agents, by
Gordon, 03/21/25, pod#4
-Severe
-Moderate AI
-Mild MR
-Trace TR
-Severe 2v CAD involving LAD and RCA
-LVEF 60% per intraop PEPE
-Hyperlipidemia
-HTN
-GERD
-Hx prediabetes, resolved
-Class 2 obesity (BMI 35.2)
-GINNA
-Fatty liver
-Former Tobacco use x 15 years
-Seasonal allergy
-Shingles
-Dysesthesia
-S/p ORIF right 3rd finger
-S/P ORIF right ankle
-Acute intraop/postop blood loss/Anemia (transfused 5u PRBC intraop)
-Acute intraop/postop thrombocytopenia (transfused 2 {5pks} plts intraop)
-Acute intraop/postop coagulopathy (received 3mg Factor VII)
-Acute postop VDRF
-Acute postop atelectasis
-Acute postop hypovolemia with subsequent hypervolemia
-Acute postop hyponatremia
Discussed patient care with: Cardiology, Nursing, Respiratory Therapy, Pharmacy and Care Team
Subjective
Procedure
-S/P Median sternotomy/CABG x 2 (GSV to D3, GSV to RPDA)/Endoscopic harvest/prep of RLE GSV/AVR (#25 Inspiris Resilia)/Excision of tricuspid stenotic AV w/ annular debridement/Pericardial patch annular enlargement/Pericardial patch aortic
augmentation/closure of aortotomy/Proximal GSV anastomoses x 2/ Attempted repair of posterior aortic annular bleeding - partially successful/ Additional repair of posterior aortic annular bleeding/Application of topical hemostatic agents, by
Gordon, 03/21/25
-
Date of Service: March 25, 2025
Pt c/o mild incisional pain, otherwise feels well
Objective Data
-
PT 16.2 Sec (11.4-14.6) H 03/21/25 16:56
INR 1.28 03/21/25 16:56
APTT 40.6 Sec (23.4-35.0) H 03/21/25 16:56
Vital Signs
Vital Signs
Temp Pulse Resp BP Pulse Ox
98.3 F 76 14 113/57 93
03/25/25 03:25 03/25/25 03:24 03/25/25 03:25 03/25/25 03:24 03/25/25 03:25
CT Intake/Output/Weight
03/24/25 03/24/25 03/25/25
06:59 18:59 06:59
Intake Total 504.8 / 948.5 108.9 / 188.9 80 / 188.9
Output Total / 2024 2230 / 2805 575 / 2805
Balance -240.2 / -1076.5 -2121.1 / -2616.1 -495 / -2616.1
SaO2: 93 (RA)
Physical Exam
-
General: Awake, Oriented and AOx3
Cardiovascular: Regular rate & rhythm, No Murmurs, No Rub and No Gallop
Respiratory: Decreased Breath Sounds (at bases, otherwise clear)
Sternum: Stable
Incision: Clean, Dry, Intact and Dressing Intact
Extremities: Other (+trace edema)
Data Reviewed
-
Lab Results: Results Reviewed
Medications: Active Meds Reviewed
Chest X-Ray: Report Reviewed and Image Reviewed
ECG: Report Reviewed and Image Reviewed
[2025-03-25 03:53] LABS: Hematocrit 21.4 % (39.0-52.0); Hemoglobin 7.1 g/dL (13.0-18.0); Mean Corp Hgb Conc. 33.2 g/dL (33.0-37.0); Mean Corpuscular Volume 84.3 fL (80.0-94.0); Platelet Count 166 10^3/uL (130-400); Red Cell Dist. Width 15.7 % (11.5-14.5)
[2025-03-25 04:04] LABS: Blood Urea Nitrogen 22 mg/dl (9-20); Calcium 7.9 mg/dl (8.4-10.2); Carbon Dioxide 30 mmol/L (22-30); Chloride 104 mmol/L (98-107); Estimated Creatinine Clearance > 125 ml/min; Glucose 112 mg/dl (70-99); Magnesium 2.3 mg/dl (1.6-2.3); Potassium 3.5 mmol/L (3.5-5.1); Sodium 132 mmol/L (135-145); eGFR > 60.00
[2025-03-25] MEDS: CALCIUM GLUCONATE 100 IV (04:53)
[2025-03-25] MEDS: KCL 40 MEQ PO (04:53)
[2025-03-25] MEDS: TYLENOL 975 MG PO ×3 (04:53→22:16)
[2025-03-25] MEDS: BACTROBAN 2% OINTMENT 1 APPLIC NASAL (07:48)
[2025-03-25] MEDS: PROTONIX 40 MG PO (07:50)
[2025-03-25] MEDS: NEURONTIN 100 MG PO ×3 (07:50→22:16)
[2025-03-25] MEDS: LOW STRENGTH ASPIRIN 81 MG PO (07:50)
[2025-03-25] MEDS: PACERONE 200 MG PO ×3 (07:50→22:16)
[2025-03-25] MEDS: PLAVIX 75 MG PO (07:50)
[2025-03-25] MEDS: SENOKOT PO ×2 (07:51→22:15)
[2025-03-25 07:57] LABS: Glucose - Point of Care 107 mg/dl (70-99)
[2025-03-25] MEDS: LOPRESSOR 12.5 MG PO ×2 (07:57→22:15)
[2025-03-25] MEDS: ZESTRIL 10 MG PO (07:57)
--- NOTE | 2025-03-25 08:25 | W.PN.CD ---
Today's Communication / Plan
-
-Hemoglobin is relatively stable at 7.1; consider blood transfusion.
-Telemetry stable; remains in sinus rhythm.
-Continue routine postoperative management as per CT Surgery team.
Impression / Plan
-
I/P: 50-year-old morbidly obese male former tobacco smoker with a past medical history of CAD, aortic valve stenosis, hypertension, mixed hyperlipidemia, history of sleep apnea, lung nodule, prediabetes, seasonal allergic rhinitis, diverticulosis,
history of herpes zoster and GERD who presents for elective AVR + CABG.
Severe s/p AVR #25 Inspiris Resilia with repairs to posterior annulus 2/2 bleeding
-Hemoglobin is relatively stable at 7.1; consider blood transfusion.
-Telemetry stable; remains in sinus rhythm.
-Continue routine postoperative management as per CT Surgery team.
CAD s/p CABG with SVG to D3 and SVG to RPDA
-Continue aspirin, Plavix, and rosuvastatin.
HTN
- Improved; well-controlled.
HLD
-Continue rosuvastatin.
Physical Exam
Vital Signs/Labs
Vital Signs
Temp Pulse Resp BP Pulse Ox
98.2 F 86 16 112/68 99
03/25/25 08:00 03/25/25 08:00 03/25/25 07:59 03/25/25 07:59 03/25/25 08:20
03/24/25 03/25/25 03/26/25
06:59 06:59 06:59
Actual Weight 105.8 kg 103.9 kg
03/25/25 03:22
03/25/25 03:22
PT 16.2 Sec (11.4-14.6) H 03/21/25 16:56
INR 1.28 03/21/25 16:56
APTT 40.6 Sec (23.4-35.0) H 03/21/25 16:56
Magnesium 2.3 mg/dl (1.6-2.3) 03/25/25 03:22
Triglycerides 91 mg/dl (10-149) 03/21/25 19:05
Physical Exam
Constitutional: No acute distress and Comfortable
EENT: Anicteric
Cardiovascular: Rhythm & rate is regular, Pedal edema present (trace), Systolic murmur present (2/6) and S1S2 is normal
Respiratory: Respiratory effort normal and Lungs clear to auscul.
GI: Soft
Neuro/Psych: AO x 3
Other: Skin (Warm, dry, intact)
Data Reviewed
-
Date of Service: March 25, 2025
EKG: Tracing Personally Visualized and interpreted (Telemetry: Sinus rhythm)
Medical Tests (PFT, Pathology etc): Discussed with Nurse and Discussed with Patient
Labs: Labs Reviewed by me
Critical Care Time (in minutes): 33
[2025-03-25] MEDS: LASIX 40 MG IV ×2 (09:03→15:42)
[2025-03-25] MEDS: KCL 20 MEQ PO ×2 (09:03→22:14)
--- NOTE | 2025-03-25 10:57 | PTCARENOTE ---
Pt OOB and ambulating w/o issue. Cordis removed. Voiding in urinal. NSR 80s on monitor.
[2025-03-25] MEDS: NSS IV (10:59)
[2025-03-25 12:02] LABS: B.E. - POC 0.2 mmol/L; Glucose - POC 117 mg/dl (70-99); HCO3 - POC 25 mmol/L (21-28); Hematocrit - POC 31 % PCV (42-52); Hemodilution- POC No; Hemoglobin Calculated - POC 10.5; Ionized Calcium - POC 1.11 mmol/L (1.15-1.33); Lactate - POC 0.90 mmol/L (0.36-0.75); O2 Saturation %Calculated-POC 99.3 % (94-98); PCO2 - POC 39 mmHg (35-48); PO2 - POC 144 mmHg (83-108); Potassium - POC 3.2 mmol/L (3.5-5.1); Sodium - POC 142 mmol/L (136-145); Specimen Type - POC Arterial; pH - POC 7.41 (7.35-7.45)
[2025-03-25 12:04] LABS: B.E. - POC 6.5 mmol/L; Glucose - POC 98 mg/dl (70-99); HCO3 - POC 30 mmol/L (21-28); Hematocrit - POC 28 % PCV (42-52); Hemodilution- POC Yes; Hemoglobin Calculated - POC 9.5; Ionized Calcium - POC 0.95 mmol/L (1.15-1.33); Lactate - POC < 0.30 mmol/L (0.36-0.75); O2 Saturation %Calculated-POC 100.0 % (94-98); PCO2 - POC 38 mmHg (35-48); PO2 - POC 430 mmHg (83-108); POC Comment CPB; Potassium - POC 4.7 mmol/L (3.5-5.1); Sodium - POC 141 mmol/L (136-145); Specimen Type - POC Arterial; pH - POC 7.51 (7.35-7.45)
[2025-03-25 12:16] LABS: B.E. - POC 5.3 mmol/L; Glucose - POC 141 mg/dl (70-99); HCO3 - POC 29 mmol/L (21-28); Hematocrit - POC 29 % PCV (42-52); Hemodilution- POC Yes; Hemoglobin Calculated - POC 9.9; Ionized Calcium - POC 1.01 mmol/L (1.15-1.33); Lactate - POC 0.78 mmol/L (0.36-0.75); O2 Saturation %Calculated-POC 99.9 % (94-98); PCO2 - POC 37 mmHg (35-48); PO2 - POC 285 mmHg (83-108); POC Comment CPB; Potassium - POC 4.7 mmol/L (3.5-5.1); Sodium - POC 141 mmol/L (136-145); Specimen Type - POC Arterial; pH - POC 7.50 (7.35-7.45)
[2025-03-25 12:16] LABS: B.E. - POC 5.6 mmol/L; Glucose - POC 131 mg/dl (70-99); HCO3 - POC 30 mmol/L (21-28); Hematocrit - POC 30 % PCV (42-52); Hemodilution- POC Yes; Hemoglobin Calculated - POC 10.1; Ionized Calcium - POC 1.02 mmol/L (1.15-1.33); Lactate - POC 0.63 mmol/L (0.36-0.75); O2 Saturation %Calculated-POC 99.9 % (94-98); PCO2 - POC 44 mmHg (35-48); PO2 - POC 330 mmHg (83-108); POC Comment CPB; Potassium - POC 4.0 mmol/L (3.5-5.1); Sodium - POC 143 mmol/L (136-145); Specimen Type - POC Arterial; pH - POC 7.45 (7.35-7.45)
[2025-03-25 12:17] LABS: B.E. - POC 6.1 mmol/L; Glucose - POC 158 mg/dl (70-99); HCO3 - POC 31 mmol/L (21-28); Hematocrit - POC 28 % PCV (42-52); Hemodilution- POC Yes; Hemoglobin Calculated - POC 9.5; Ionized Calcium - POC 1.03 mmol/L (1.15-1.33); Lactate - POC 0.78 mmol/L (0.36-0.75); O2 Saturation %Calculated-POC 100.0 % (94-98); PCO2 - POC 45 mmHg (35-48); PO2 - POC 365 mmHg (83-108); POC Comment CPB; Potassium - POC 4.3 mmol/L (3.5-5.1); Sodium - POC 142 mmol/L (136-145); Specimen Type - POC Arterial; pH - POC 7.44 (7.35-7.45)
[2025-03-25 12:20] LABS: B.E. - POC 2.8 mmol/L; Glucose - POC 129 mg/dl (70-99); HCO3 - POC 27 mmol/L (21-28); Hematocrit - POC 27 % PCV (42-52); Hemodilution- POC Yes; Hemoglobin Calculated - POC 9.0; Ionized Calcium - POC 1.02 mmol/L (1.15-1.33); Lactate - POC 1.58 mmol/L (0.36-0.75); O2 Saturation %Calculated-POC 99.9 % (94-98); PCO2 - POC 38 mmHg (35-48); PO2 - POC 321 mmHg (83-108); POC Comment CPB; Potassium - POC 3.6 mmol/L (3.5-5.1); Sodium - POC 146 mmol/L (136-145); Specimen Type - POC Arterial; pH - POC 7.46 (7.35-7.45)
[2025-03-25 12:20] LABS: B.E. - POC 6.9 mmol/L; Glucose - POC 155 mg/dl (70-99); HCO3 - POC 31 mmol/L (21-28); Hematocrit - POC 29 % PCV (42-52); Hemodilution- POC Yes; Hemoglobin Calculated - POC 9.7; Ionized Calcium - POC 1.04 mmol/L (1.15-1.33); Lactate - POC 1.51 mmol/L (0.36-0.75); O2 Saturation %Calculated-POC 99.9 % (94-98); PCO2 - POC 40 mmHg (35-48); PO2 - POC 312 mmHg (83-108); POC Comment CPB; Potassium - POC 3.6 mmol/L (3.5-5.1); Sodium - POC 144 mmol/L (136-145); Specimen Type - POC Arterial; pH - POC 7.49 (7.35-7.45)
[2025-03-25 12:21] LABS: B.E. - POC 1.8 mmol/L; Glucose - POC 187 mg/dl (70-99); HCO3 - POC 27 mmol/L (21-28); Hematocrit - POC 25 % PCV (42-52); Hemodilution- POC Yes; Hemoglobin Calculated - POC 8.4; Ionized Calcium - POC 1.00 mmol/L (1.15-1.33); Lactate - POC 2.18 mmol/L (0.36-0.75); O2 Saturation %Calculated-POC 100.0 % (94-98); PCO2 - POC 41 mmHg (35-48); PO2 - POC 433 mmHg (83-108); Potassium - POC 4.3 mmol/L (3.5-5.1); Sodium - POC 142 mmol/L (136-145); Specimen Type - POC Arterial; pH - POC 7.42 (7.35-7.45)
[2025-03-25 12:21] LABS: B.E. - POC 5.4 mmol/L; Glucose - POC 124 mg/dl (70-99); HCO3 - POC 29 mmol/L (21-28); Hematocrit - POC 28 % PCV (42-52); Hemodilution- POC Yes; Hemoglobin Calculated - POC 9.4; Ionized Calcium - POC 1.02 mmol/L (1.15-1.33); Lactate - POC 2.01 mmol/L (0.36-0.75); O2 Saturation %Calculated-POC 99.9 % (94-98); PCO2 - POC 40 mmHg (35-48); PO2 - POC 245 mmHg (83-108); POC Comment WARM; Potassium - POC 3.7 mmol/L (3.5-5.1); Sodium - POC 146 mmol/L (136-145); Specimen Type - POC Arterial; pH - POC 7.48 (7.35-7.45)
[2025-03-25 12:21] LABS: B.E. - POC -1.3 mmol/L; Glucose - POC 143 mg/dl (70-99); HCO3 - POC 27 mmol/L (21-28); Hematocrit - POC 26 % PCV (42-52); Hemodilution- POC Yes; Hemoglobin Calculated - POC 8.8; Ionized Calcium - POC 1.11 mmol/L (1.15-1.33); Lactate - POC 2.35 mmol/L (0.36-0.75); O2 Saturation %Calculated-POC 99.6 % (94-98); PCO2 - POC 62 mmHg (35-48); PO2 - POC 212 mmHg (83-108); POC Comment POST; Potassium - POC 4.1 mmol/L (3.5-5.1); Sodium - POC 146 mmol/L (136-145); Specimen Type - POC Arterial; pH - POC 7.24 (7.35-7.45)
[2025-03-25 12:22] LABS: B.E. - POC -1.2 mmol/L; Glucose - POC 216 mg/dl (70-99); HCO3 - POC 24 mmol/L (21-28); Hematocrit - POC 26 % PCV (42-52); Hemodilution- POC Yes; Hemoglobin Calculated - POC 8.8; Ionized Calcium - POC 1.13 mmol/L (1.15-1.33); Lactate - POC 2.23 mmol/L (0.36-0.75); O2 Saturation %Calculated-POC 99.2 % (94-98); PCO2 - POC 39 mmHg (35-48); PO2 - POC 146 mmHg (83-108); POC Comment POST; Potassium - POC 3.9 mmol/L (3.5-5.1); Sodium - POC 142 mmol/L (136-145); Specimen Type - POC Arterial; pH - POC 7.39 (7.35-7.45)
[2025-03-25 12:48] LABS: Glucose - Point of Care 114 mg/dl (70-99)
[2025-03-25 17:35] LABS: Glucose - Point of Care 121 mg/dl (70-99)
--- NOTE | 2025-03-25 22:00 | PTCARENOTE ---
Report received from SERINA Toscano. Walking rounds done. VS done. Pt assessed. Pt awake, alert, oriented x 4. Speech clear. Equal strength x 4. Pt on room air. Sats 97-98%. BBS present. CDB, IS encouraged. Audible heart tones. Pt in SR. Normotensive. V
wire insulated to chest. See flowsheets for pulse and wound assessments. Belly soft, obese, round, nontender. Normoactive bs x 4. Voids clear, yellow urine ad carlita. Pt given CHG bath, face washed. Ongoing plan of care. HS glucose check.
[2025-03-25] MEDS: CRESTOR 40 MG PO (22:41)
[2025-03-25 22:48] LABS: Glucose - Point of Care 107 mg/dl (70-99)
[2025-03-26] VITALS (10 sets, daily range): BP systolic 103–132; BP diastolic 53–80; PULSE 81; O2SAT 100; BMI 36.5
--- NOTE | 2025-03-26 03:00 | PTCARENOTE ---
Pt up to BR to void clear, yellow urine. Weighed on standing scale. VS done. Labs drawn and sent. No c/o pain.
[2025-03-26 04:19] LABS: Hematocrit 24.2 % (39.0-52.0); Hemoglobin 7.6 g/dL (13.0-18.0); Mean Corp Hgb Conc. 31.4 g/dL (33.0-37.0); Mean Corpuscular Volume 87.1 fL (80.0-94.0); Platelet Count 232 10^3/uL (130-400); Red Cell Dist. Width 15.9 % (11.5-14.5)
[2025-03-26 04:21] LABS: Blood Urea Nitrogen 20 mg/dl (9-20); Calcium 8.3 mg/dl (8.4-10.2); Carbon Dioxide 28 mmol/L (22-30); Chloride 104 mmol/L (98-107); Estimated Creatinine Clearance > 125 ml/min; Glucose 106 mg/dl (70-99); Magnesium 2.2 mg/dl (1.6-2.3); Potassium 4.1 mmol/L (3.5-5.1); Sodium 135 mmol/L (135-145); eGFR > 60.00
--- NOTE | 2025-03-26 06:02 | W.PN.CT ---
Today's Communication / Plan
-
Plan:
-No major issues overnight. Hemodynamically and neurologically intact
-Off all drips
-Tolerating resumption of BB, Lisinopril added
-Monitor h/h 7.6/24.2, up from 7.1/21.4, likely hemodilutional. Wt was up 12 lbs from preop yesterday, down to 8 lbs. Minimize fluid intake, continue diuresis
-Replete electrolytes
-Hyponatremia has resolved
-Cont. current meds (ASA, Plavix, Crestor, Lopressor, Lisinopril)
-Encourage use of IS
-Maintain temporary v-wire, will cut before d/c home
-OOB into chair/Ambulate
-Likely home today on PO Lasix/KCL
Assessment / Plan
-
Assessment:
-S/P Median sternotomy/CABG x 2 (GSV to D3, GSV to RPDA)/Endoscopic harvest/prep of RLE GSV/AVR (#25 Inspiris Resilia)/Excision of tricuspid stenotic AV w/ annular debridement/Pericardial patch annular enlargement/Pericardial patch aortic
augmentation/closure of aortotomy/Proximal GSV anastomoses x 2/ Attempted repair of posterior aortic annular bleeding - partially successful/ Additional repair of posterior aortic annular bleeding/Application of topical hemostatic agents, by
Gordon, 03/21/25, pod#5
-Severe
-Moderate AI
-Mild MR
-Trace TR
-Severe 2v CAD involving LAD and RCA
-LVEF 60% per intraop PEPE
-Hyperlipidemia
-HTN
-GERD
-Hx prediabetes, resolved
-Class 2 obesity (BMI 35.2)
-GINNA
-Fatty liver
-Former Tobacco use x 15 years
-Seasonal allergy
-Shingles
-Dysesthesia
-S/p ORIF right 3rd finger
-S/P ORIF right ankle
-Acute intraop/postop blood loss/Anemia (transfused 5u PRBC intraop)
-Acute intraop/postop thrombocytopenia (transfused 2 {5pks} plts intraop)
-Acute intraop/postop coagulopathy (received 3mg Factor VII)
-Acute postop VDRF
-Acute postop atelectasis
-Acute postop hypovolemia with subsequent hypervolemia
-Acute postop hyponatremia
Discussed patient care with: Cardiology, Nursing, Respiratory Therapy, Pharmacy and Care Team
Subjective
Procedure
-S/P Median sternotomy/CABG x 2 (GSV to D3, GSV to RPDA)/Endoscopic harvest/prep of RLE GSV/AVR (#25 Inspiris Resilia)/Excision of tricuspid stenotic AV w/ annular debridement/Pericardial patch annular enlargement/Pericardial patch aortic
augmentation/closure of aortotomy/Proximal GSV anastomoses x 2/ Attempted repair of posterior aortic annular bleeding - partially successful/ Additional repair of posterior aortic annular bleeding/Application of topical hemostatic agents, by
Gordon, 03/21/25
-
Date of Service: March 26, 2025
Pt c/o mild incisional pain, otherwise feels well
Objective Data
-
Lab Results
03/26/25 03:38
03/26/25 03:38
PT 16.2 Sec (11.4-14.6) H 03/21/25 16:56
INR 1.28 03/21/25 16:56
APTT 40.6 Sec (23.4-35.0) H 03/21/25 16:56
Vital Signs
Vital Signs
Temp Pulse Resp BP Pulse Ox
98.6 F 72 15 132/61 96
03/26/25 03:23 03/26/25 04:00 03/26/25 03:23 03/26/25 03:23 03/26/25 03:23
CT Intake/Output/Weight
03/25/25 03/25/25 03/26/25
06:59 18:59 06:59
Intake Total 220 / 328.9 350 / 350
Output Total 575 / 2805 400 / 750 350 / 750
Balance -355 / -2476.1 -400 / -400 0 / -400
SaO2: 96 (RA)
Physical Exam
-
General: Awake, Oriented and AOx3
Cardiovascular: Regular rate & rhythm, No Murmurs, No Rub and No Gallop
Respiratory: Decreased Breath Sounds (at bases, otherwise clear)
Sternum: Stable
Incision: Clean, Dry, Intact and Dressing Intact
Extremities: Other (+trace edema)
Data Reviewed
-
Lab Results: Results Reviewed
Medications: Active Meds Reviewed
Chest X-Ray: Report Reviewed and Image Reviewed
ECG: Report Reviewed and Image Reviewed
[2025-03-26] MEDS: TYLENOL 975 MG PO (06:27)
--- NOTE | 2025-03-26 06:30 | PTCARENOTE ---
Pt in recliner chair this am. AM Tylenol given. Dr. Leyva in to see pt.
[2025-03-26] MEDS: ZESTRIL 10 MG PO (08:25)
[2025-03-26] MEDS: KCL 20 MEQ PO (08:25)
[2025-03-26] MEDS: PACERONE 200 MG PO (08:25)
[2025-03-26] MEDS: PROTONIX 40 MG PO (08:25)
[2025-03-26] MEDS: LASIX 40 MG IV (08:25)
[2025-03-26] MEDS: NEURONTIN 100 MG PO (08:25)
[2025-03-26] MEDS: TOPROL XL 50 MG PO (08:26)
[2025-03-26] MEDS: SENOKOT PO (08:26)
[2025-03-26] MEDS: PLAVIX 75 MG PO (08:26)
[2025-03-26] MEDS: LOW STRENGTH ASPIRIN 81 MG PO (08:26)
[2025-03-26] MEDS: NSS IV (08:29)
[2025-03-26 08:41] LABS: Glucose - Point of Care 104 mg/dl (70-99)
--- NOTE | 2025-03-26 08:57 | PTCARENOTE ---
Assumed care of patient at 0700. Pt is awake, alert, and oriented. No complaints of pain. Pt remains SR with HR 75. BP 109/53 MAP 68. Epicardial V wire insulated. Pulse oximetry 100% on room air. Pt utilizing IS, continued use encouraged. Pt
tolerating PO diet. Voiding without difficulty. Midsternal incision post-surgical dressing in place with old drainage present. Right groin and right leg approximated and KELVIN. Pt ambulated with cardiac rehab and completed steps. Currently ambulating
in room independently.
--- NOTE | 2025-03-26 09:30 | W.DCSUMMARY ---
Discharge Summary
Discharge Data
Date of Admission: 03/21/25
Date of Discharge: 03/26/25
Total time spent discharging patient (in min): 45
-
Pending Results: No
Hospital Course
Primary care physician:
Dr. Carney
Outpatient policy and planning manager:
Dr. Chowdhury
Inpatient consultants:
CBC, salad chef
Procedures:
1. Median sternotomy/CABG x 2 (GSV to D3, GSV to RPDA)/Endoscopic harvest/prep of RLE GSV/AVR (#25 Inspiris Resilia)/Excision of tricuspid stenotic AV w/ annular debridement/Pericardial patch annular enlargement/Pericardial patch aortic
augmentation/closure of aortotomy/Proximal GSV anastomoses x 2/ Attempted repair of posterior aortic annular bleeding - partially successful/ Additional repair of posterior aortic annular bleeding/Application of topical hemostatic agents, by
Gordon, 03/21/25
Primary Diagnosis:
1. Severe
Secondary Diagnoses:
-Moderate AI
-Mild MR
-Trace TR
-Severe 2v CAD involving LAD and RCA
-LVEF 60% per intraop PEPE
-Hyperlipidemia
-HTN
-GERD
-Hx prediabetes, resolved
-Class 2 obesity (BMI 35.2)
-GINNA
-Fatty liver
-Former Tobacco use x 15 years
-Seasonal allergy
-Shingles
-Dysesthesia
-S/p ORIF right 3rd finger
-S/P ORIF right ankle
-Acute intraop/postop blood loss/Anemia (transfused 5u PRBC intraop)
-Acute intraop/postop thrombocytopenia (transfused 2 {5pks} plts intraop)
-Acute intraop/postop coagulopathy (received 3mg Factor VII)
-Acute postop VDRF
-Acute postop atelectasis
-Acute postop hypovolemia with subsequent hypervolemia
-Acute postop hyponatremia
HPI: 58-year-old male with electively admitted on 03/17/2025 for AVR and CABG due to bicuspid aortic valve with severe aortic stenosis and two-vessel coronary disease with preserved EF
Hospital course: Patient presented electively on 03/21 for AVR and CABG with Dr. Leyva. While in the OR patient received 5 units of packed red blood cells, tube Bowls of platelets, and factor VII postoperatively he returned to the CVICU on
dobutamine, Levophed, Precedex, and insulin infusions. He was started on propofol in order to remain intubated overnight. On 03/22 postoperative day 1, Amio and beta-blockers were placed on hold due to the dobutamine. Levophed weaned off he was
placed on a spontaneous breathing trial and was extubated by 1110. Throughout the day patient's dobutamine was weaned from 4 to 2. On 03/23 postoperative day 2, patient's hemoglobin was noted to be 7.3 and he was given 1 unit of packed red blood
cells followed by 40 mg of IV Lasix. Patient was also noted to be hypertensive and was started on lisinopril while on dobutamine. On 03/24 postoperative day 3 dobutamine was weaned off patient's Morales catheter was removed and he was diuresed with
40 mg of IV Lasix twice daily. Chest tubes were removed and beta-blockers and Amio was resumed later that evening. On 03/25 postoperative day 4, patient's Cordis was removed. He was diuresed with 40 mg of Lasix twice daily. Hemoglobin is slowly
trending up and remains asymptomatic. On 03/26 postoperative day 5 patient was diuresed again hemoglobin was noted to continue its steady uptrend. Epicardial wires were removed at bedside. Patient was deemed stable for discharge home with oral
Lasix and follow-up CBC/BMP in 1 week.
Home medication changes:
see below
Discharge Plan
-
Patient Disposition: Home (Routine Discharge)
Discharge Diagnosis/Procedures: AVR with root enlargement, CABG x 2
Condition: Good
Diet: Low Cholesterol and Low Sodium
Activity: No strenuous activity
Driving Restrictions: Not until seen by your Dr
Bathing Restrictions: OK to Shower
Blood Work: cbc and BMP/mag in one week
Other Services: Cardiac Rehab
Specialty Instructions: Weigh Daily- Call MD for wt gain/loss 3 lbs overnight/5 lbs in 1 week
Activity Restrictions/Additional Instructions:
ACTIVITY:
-No strenuous activity: no heavy lifting, pushing, pulling anything over 15 pounds for one month
-continue to use stairs as tolerated
DRIVING RESTRICTIONS:
-No driving for one month or until approved by your surgeon
WOUND CARE:
-Shower daily. Use soap & water.
-No lotions, creams or powders on incision area.
DIET:
-continue a low fat/low cholesterol diet.
-IF you are diabetic, continue carb controlled diet.
CARDIAC REHAB:
-Please make appointment to start in 5-6 weeks with your local hospital program. (See Cardiac Rehabilitation Discharge Booklet).
SPECIALTY INSTRUCTIONS:
-Weigh yourself daily. Call your physician for any weight gain/loss of 3 lbs overnight or 5 lbs in one week.
-REPORT any clicking noise or uneven appearance of your sternum to your surgeon immediately.
-If you smoke, you are instructed to quit. The [place] smoking hotline phone number is [phone]
Referrals:
CT Transitional Care Nurse [Outside]
Referral Note: The Cardiothoracic Transitional Care Nurse will call you to set up a visit in 1-2 days.
[facility] [Outside]
Referral Note: Cardiac Rehab Orientation appointment is on Monday04/23/2025@ 0830am.
The Cardiac Rehab gym is located on the first floor of the [facility].
Carroll Chowdhury MD [Active, Cardiology]
Referral Note: [facility]
[address]
CYNTHIA Troncoso 04/22 appointment cancelled
Makeda Carney MD [Family Provider, [facility]]
Orestes Leyva MD [Active, Cardiac Surgery] - 04/22/25 3:00 pm
Additional Discharge Medication Instructions: Please take lasix 40mg daily for 1 week and weigh yourself everyday;
Prescriptions:
New
acetaminophen 325 mg Tablet
650 mg PO Q4HPRN PRN (Reason: mild pain,headache,temp >101F ) Qty: 0 0RF
metoprolol succinate 50 mg Tablet Extended Release 24 Hr
50 mg PO DAILY Qty: 60 1RF
tramadol 50 mg Tablet
50 mg PO Q6HPRN PRN (Reason: moderate pain) Qty: 10 0RF
pantoprazole 40 mg Tablet,Delayed Release (Dr/Ec)
40 mg PO DAILY Qty: 60 0RF
clopidogrel [Plavix] 75 mg tablet
75 mg PO DAILY Qty: 30 0RF
Continued
lisinopril 10 mg Tablet
10 mg PO HS
aspirin 81 mg Tablet
81 mg PO DAILY
rosuvastatin 40 mg Tablet
40 mg PO HS
furosemide [Lasix] 40 mg tablet
40 mg PO DAILY Qty: 14 0RF
Discontinued
omeprazole 40 mg Capsule,Delayed Release(Dr/Ec)
40 mg PO DAILY
Discharge Orders:
Discharge Patient (As Directed); Ordered 03/26/25
Ordered By: Kym Brooks
Care Plan Goals
Care Plan Goals:
Problem: Readiness for enhanced knowledge related to diagnosis and treatment plan
Goal: Understand your diagnosis and treatment plan needs, including medications if applicable.
Instructions: Know your diagnosis, underlying causes and treatment plan options, including medications if applicable. Consult with your health care team to learn about your diagnosis and treatment plan, including medications if applicable.
Discharge Date and Time
Print Language: LITHUANIAN
--- NOTE | 2025-03-26 09:39 | W.PN.CD ---
Today's Communication / Plan
-
-Hemoglobin remains relatively stable, 7.10-->7.6 today.
-Telemetry remains stable, in sinus rhythm.
-Likely discharge to home today; outpatient follow-up with Cardiology.
Impression / Plan
-
I/P: 50-year-old morbidly obese male former tobacco smoker with a past medical history of CAD, aortic valve stenosis, hypertension, mixed hyperlipidemia, history of sleep apnea, lung nodule, prediabetes, seasonal allergic rhinitis, diverticulosis,
history of herpes zoster and GERD who presents for elective AVR + CABG.
Severe s/p AVR #25 Inspiris Resilia with repairs to posterior annulus 2/2 bleeding
-Hemoglobin remains relatively stable, 7.10-->7.6 today.
-Telemetry remains stable, in sinus rhythm.
-Likely discharge to home today; outpatient follow-up with Cardiology.
CAD s/p CABG with SVG to D3 and SVG to RPDA
-Continue medical management with aspirin, Plavix, and rosuvastatin.
HTN
-Controlled.
-Continue current medications.
HLD
-Continue rosuvastatin.
Physical Exam
Vital Signs/Labs
Vital Signs
Temp Pulse Resp BP Pulse Ox
98.3 F 75 18 109/53 100
03/26/25 08:23 03/26/25 08:23 03/26/25 08:23 03/26/25 08:21 03/26/25 08:47
03/25/25 03/26/25 03/27/25
06:59 06:59 06:59
Actual Weight 103.9 kg 102.4 kg
03/26/25 03:38
03/26/25 03:38
PT 16.2 Sec (11.4-14.6) H 03/21/25 16:56
INR 1.28 03/21/25 16:56
APTT 40.6 Sec (23.4-35.0) H 03/21/25 16:56
Magnesium 2.2 mg/dl (1.6-2.3) 03/26/25 03:38
Triglycerides 91 mg/dl (10-149) 03/21/25 19:05
Physical Exam
Constitutional: No acute distress and Comfortable
EENT: Anicteric
Cardiovascular: Rhythm & rate is regular, Pedal edema present (trace), Systolic murmur present (2/6) and S1S2 is normal
Respiratory: Respiratory effort normal and Lungs clear to auscul.
GI: Soft
Neuro/Psych: AO x 3
Other: Skin (Warm, dry)
Data Reviewed
-
Date of Service: March 26, 2025
EKG: Tracing Personally Visualized and interpreted (Telemetry: Sinus rhythm)
Medical Tests (PFT, Pathology etc): Discussed with Physician (CT Surgery team) and Discussed with Patient
Labs: Labs Reviewed by me
Critical Care Time (in minutes): 33
--- NOTE | 2025-03-26 10:03 | PTCARENOTE ---
Epicardial V wire pulled by CT NEHEMIAH, Jen. Pt tolerated well. BP monitored Q15min x1hr on bedrest. Most recent BP 124/61 MAP 79. Remains SR with HR 82.
[2025-03-26] MEDS: ULTRAM 50 MG PO (11:58)
--- NOTE | 2025-03-26 12:14 | PTCARENOTE ---
Discharge order received. Pt showered without issue. Peripheral IV's and tele monitor removed. Pt remains SR with HR 82. BP 124/61 MAP 79. Pulse oximetry 100% on room air. Discharge instructions reviewed with pt and . Stable at discharge.
--- NOTE | 2025-03-27 16:22 | W.PN.UPDATE ---
Update Note
Progress Note Update
BLANK IN OPERATIVE DICTATION 8th PARAGRAPH SHOULD READ... 'COAPTATION'
Thank you,
Dr. Orestes Leyva
== END 2025-03-26 12:22 | disposition home or self-care (01) | DRG 219 ==
LOC: CVICU 04:59
PROVIDERS: Anesthesiology; Clinical Nurse Specialist Acute Care; Nurse Practitioner; ADMITTING PHYSICIAN Thoracic Surgery (Cardiothoracic Vascular Surgery); CONSULT PHYSICIAN Internal Medicine Cardiovascular Disease; CONSULT PHYSICIAN Internal Medicine Critical Care Medicine; FAMILY PHYSICIAN Family Medicine
PROC: 02QX0ZZ Repair Thoracic Aorta, Ascending/Arch, Open Approach (ICD-10-PCS; 2025-03-21)
PROC: 30233N1 Transfusion of Nonautologous Red Blood Cells into Peripheral Vein, Percutaneous Approach (ICD-10-PCS; 2025-03-21)
PROC: 06BP4ZZ Excision of Right Saphenous Vein, Percutaneous Endoscopic Approach (ICD-10-PCS; 2025-03-21)
PROC: 30233R1 Transfusion of Nonautologous Platelets into Peripheral Vein, Percutaneous Approach (ICD-10-PCS; 2025-03-21)
PROC: 5A1221Z Performance of Cardiac Output, Continuous (ICD-10-PCS; 2025-03-21)
PROC: B24BZZ4 Ultrasonography of Heart with Aorta, Transesophageal (ICD-10-PCS; 2025-03-21)
PROC: 021109W Bypass Coronary Artery, Two Arteries from Aorta with Autologous Venous Tissue, Open Approach (ICD-10-PCS; 2025-03-21)
PROC: 02RF08Z Replacement of Aortic Valve with Zooplastic Tissue, Open Approach (ICD-10-PCS; 2025-03-21)
PROC: 5A2204Z Restoration of Cardiac Rhythm, Single (ICD-10-PCS; 2025-03-21)
PROC: 02UX08Z Supplement Thoracic Aorta, Ascending/Arch with Zooplastic Tissue, Open Approach (ICD-10-PCS; 2025-03-21)
DX: I35.2 Nonrheumatic aortic (valve) stenosis with insufficiency (principal); I49.01 Ventricular fibrillation; J95.821 Acute postprocedural respiratory failure; D62 Acute posthemorrhagic anemia; I97.418 Intraoperative hemorrhage and hematoma of a circulatory system organ or structure complicating other circulatory system procedure; D68.8 Other specified coagulation defects; J98.11 Atelectasis; E87.1 Hypo-osmolality and hyponatremia; D69.59 Other secondary thrombocytopenia; E86.1 Hypovolemia; E87.70 Fluid overload, unspecified; I25.10 Atherosclerotic heart disease of native coronary artery without angina pectoris; I25.82 Chronic total occlusion of coronary artery; R73.03 Prediabetes; E78.2 Mixed hyperlipidemia; E66.812 Obesity, class 2; Z68.35 Body mass index [BMI] 35.0-35.9, adult; I10 Essential (primary) hypertension; K21.9 Gastro-esophageal reflux disease without esophagitis; E83.51 Hypocalcemia; G47.33 Obstructive sleep apnea (adult) (pediatric); I35.8 Other nonrheumatic aortic valve disorders; K76.0 Fatty (change of) liver, not elsewhere classified; Y83.2 Surgical operation with anastomosis, bypass or graft as the cause of abnormal reaction of the patient, or of later complication, without mention of misadventure at the time of the procedure; Z87.891 Personal history of nicotine dependence; Z86.16 Personal history of COVID-19; Z82.49 Family history of ischemic heart disease and other diseases of the circulatory system
CPT/HCPCS: 36415; 71045; 71046; 75573; 80048; 80053; 81003; 81015; 82248; 82330; 82565; 82805; 82810; 82947; 82962; 83036; 83735; 84132; 84302; 84478; 84520; 85014; 85018; 85025; 85027; 85049; 85610; 85730; 86850; 86900; 86901; 86920; 87070; 87147; 88305; 88311; 93005; 93312; 93320; 93325; 93880; 93923; 93931; 94002; 94003; C1768; J1250; J7189; P9016; P9045; P9073; Q9967

== ENCOUNTER → 2025-04-01 14:44 | Outpatient (REF) | payer BC, SELFPAY | LOC: RAD 14:44 | PROVIDERS: ATTENDING PHYSICIAN Thoracic Surgery (Cardiothoracic Vascular Surgery); FAMILY PHYSICIAN Family Medicine | DX: Z09 Encounter for follow-up examination after completed treatment for conditions other than malignant neoplasm (principal) | CPT/HCPCS: 93971 ==

== ENCOUNTER → 2025-04-02 07:34 | Outpatient (REF) | payer BC, SELFPAY ==
[2025-04-02 09:55] LABS: Hematocrit 29.4 % (39.0-52.0); Hemoglobin 8.8 g/dL (13.0-18.0); Mean Corp Hgb Conc. 29.9 g/dL (33.0-37.0); Mean Corpuscular Volume 90.2 fL (80.0-94.0); Nucleated Red Blood Cells % 0 % (-); Platelet Count 418 10^3/uL (130-400); Red Cell Dist. Width 17.0 % (11.5-14.5)
[2025-04-02 10:35] LABS: Reticulocyte Count 8.2 % (0.4-2.8)
[2025-04-02 10:36] LABS: Anisocytosis Slight; Hypochromasia Slight; Normal RBC Morphology No
[2025-04-02 11:36] LABS: Blood Urea Nitrogen 10 mg/dl (9-20); Calcium 9.0 mg/dl (8.4-10.2); Carbon Dioxide 27 mmol/L (22-30); Chloride 101 mmol/L (98-107); Glucose 101 mg/dl (70-99); Potassium 4.3 mmol/L (3.5-5.1); Sodium 136 mmol/L (135-145); eGFR > 60.00
== END ==
LOC: REG 07:34
PROVIDERS: ATTENDING PHYSICIAN Thoracic Surgery (Cardiothoracic Vascular Surgery); FAMILY PHYSICIAN Family Medicine
DX: R35.89 Other polyuria (principal)
CPT/HCPCS: 36415; 80048; 85025; 85045

== ENCOUNTER 2025-04-25 15:24 | Outpatient (RCR) | payer BC, SELFPAY | END 2025-04-25 23:59 | disposition home or self-care (01) | LOC: CRHB 15:24 | PROVIDERS: ATTENDING PHYSICIAN Thoracic Surgery (Cardiothoracic Vascular Surgery) | DX: Z95.1 Presence of aortocoronary bypass graft (principal) | CPT/HCPCS: 93797; 93798 ==

== ENCOUNTER 2025-05-26 14:17 | Outpatient (RCR) | payer BC, SELFPAY | END 2025-05-26 23:59 | disposition home or self-care (01) | LOC: CRHB 14:17 | PROVIDERS: ATTENDING PHYSICIAN Thoracic Surgery (Cardiothoracic Vascular Surgery) | DX: Z95.1 Presence of aortocoronary bypass graft (principal); I25.10 Atherosclerotic heart disease of native coronary artery without angina pectoris (principal) | CPT/HCPCS: 93797; 93798 ==